=== PATIENT | male | born 2000 | race Caucasian/White ===

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

== ENCOUNTER 2022-09-17 22:59 | Emergency (ER) | payer OTHER ==
[2022-09-17 23:07] VITALS: BP 124/79; PULSE 110; RESP 18; TEMP 97.9
[2022-09-17] MEDS ORDERED: ACETAMINOPHEN TAB 325 MG TAB PO STA (23:23)
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
== END 2022-09-17 23:47 | disposition home or self-care (01) ==
LOC: EC 22:59
DX: F17.200 Nicotine dependence, unspecified, uncomplicated; Z88.8 Allergy status to other drugs, medicaments and biological substances
CPT/HCPCS: 99284

== ENCOUNTER 2023-10-13 10:39 | Inpatient (IN) | payer MEDICAID, OTHER ==
[2023-10-13 11:55] LABS: Amphetamine Screen,Urine Detected (NotDetected); Barbiturate Screen,Urine Not Detected (NotDetected); Benzodiazepines Screen,Urine Not Detected (NotDetected); Cocaine Screen,Urine Not Detected (NotDetected); Methadone Screen, Urine Not Detected (NotDetected); Opiate Screen,Urine Not Detected (NotDetected); Oxycodone Screen, Urine Not Detected (NotDetected); Phencyclidine Screen,Urine Not Detected (NotDetected); Tricyclic Antidepressant,Urine Not Detected (NotDetected); Urn Cannabinoid Scrn Detected (NotDetected)
--- NOTE | 2023-10-13 11:57 | ED ---
Psych HPI - General Source: patient, police, RN notes reviewed Mode of arrival: ambulatory Limitations: no limitations <Jaquan Acosta - Last Filed: 10/13/23 13:22> - General Source: patient, police, RN notes reviewed, old records reviewed Mode of arrival: ambulatory Limitations: no limitations - History of Present Illness MD Complaint: suicidal ideation, feels depressed Associated Psychiatric Symptoms: delusions Worsens With: drug use Context: significant life stressor Associated Symptoms: confusion <Kyler Han - Last Filed: 10/13/23 13:57> - General Chief Complaint: Psychiatric Symptoms Stated Complaint: mental health Time Seen by Provider: 10/13/23 10:39 - History of Present Illness Initial Comments: 23-year-old male presents emergency department with police for psychiatric evaluation. Patient reports methamphetamine use. Patient also has history of schizoaffective, schizophrenia not on current medications. Patient denies any other drug use denies current alcohol abuse no physical complaints. (Jaquan Acosta) 23 male for psychiatric illness, patient has history of psychosis schizophrenia not taking medication (Kyler Han) - Related Data Home Medications Medication Instructions Recorded Confirmed busPIRone HCL 15 mg PO BID 10/13/23 10/13/23 Allergies Allergy/AdvReac Type Severity Reaction Status Date / Time fluphenazine [From Prolixin] AdvReac Severe Swelling Verified 10/13/23 12:22 haloperidol [From Haldol] AdvReac Severe Unknown Verified 10/13/23 12:22 Review of Systems ROS Other: All systems not noted in ROS Statement are negative. <Jaquan Acosta - Last Filed: 10/13/23 13:22> ROS Other: All systems not noted in ROS Statement are negative. <Kyler Han - Last Filed: 10/13/23 13:57> ROS Statement: Those systems with pertinent positive or pertinent negative responses have been documented in the HPI. Past Medical History Past Medical History: No Reported History History of Any Multi-Drug Resistant Organisms: None Reported Past Surgical History: No Surgical Hx Reported Past Psychological History: Unable to Obtain Smoking Status: Current every day smoker Past Alcohol Use History: None Reported Past Drug Use History: Methamphetamine - Past Family History Mother Family Medical History: COPD <Jaquan Acosta - Last Filed: 10/13/23 13:22> General Exam Limitations: no limitations General appearance: alert, in no apparent distress, anxious Head exam: Present: atraumatic, normocephalic, normal inspection Respiratory exam: Present: normal lung sounds bilaterally. Absent: respiratory distress, wheezes, rales, rhonchi, stridor Cardiovascular Exam: Present: normal rhythm, tachycardia, normal heart sounds. Absent: systolic murmur, diastolic murmur, rubs, gallop, clicks Neurological exam: Present: alert, oriented X3, CN II-XII intact Psychiatric exam: Present: anxious <Jaquan Acosta M - Last Filed: 10/13/23 13:22> General appearance: alert, in no apparent distress Head exam: Present: atraumatic, normocephalic, normal inspection Eye exam: Present: normal appearance, PERRL, EOMI. Absent: scleral icterus, conjunctival injection, periorbital swelling ENT exam: Present: normal exam, mucous membranes moist Neck exam: Present: normal inspection. Absent: tenderness, meningismus, lymphadenopathy Respiratory exam: Present: normal lung sounds bilaterally. Absent: respiratory distress, wheezes, rales, rhonchi, stridor Cardiovascular Exam: Present: regular rate, normal rhythm, normal heart sounds. Absent: systolic murmur, diastolic murmur, rubs, gallop, clicks GI/Abdominal exam: Present: soft, normal bowel sounds. Absent: distended, tenderness, guarding, rebound, rigid Extremities exam: Present: normal inspection, full ROM, normal capillary refill. Absent: tenderness, pedal edema, joint swelling, calf tenderness Back exam: Present: normal inspection Neurological exam: Present: alert, oriented X3, CN II-XII intact Psychiatric exam: Present: normal affect, normal mood Skin exam: Present: warm, dry, intact, normal color. Absent: rash <Kyler Han - Last Filed: 10/13/23 13:57> Course <Kyler Han - Last Filed: 10/13/23 13:57> Vital Signs 10/13/23 10/13/23 10:40 13:43 Temperature 97.9 F Pulse Rate 119 H 86 Respiratory 18 20 Rate Blood Pressure 137/88 130/80 O2 Sat by Pulse 99 98 Oximetry - Reevaluation(s) Reevaluation #1: 10/13/23 11:57 Medical records reviewed (Kyler Hna) Reevaluation #2: 10/13/23 11:57 Cleared for psychiatric evaluation (Kyler Han) Medical Decision Making <Jaquan Acosta - Last Filed: 10/13/23 13:22> <Kyler Han - Last Filed: 10/13/23 13:57> - Medical Decision Making Was pt. sent in by a medical professional or institution (, WARNER, BLOOD BANK CUSTODIAN, urgent care, hospital, or longterm...) When possible be specific @ -No Did you speak to anyone other than the patient for history (EMS, parent, family, police, friend...)? What history was obtained from this source @ -Police who brought patient in regarding recent history and complaint Did you review nursing and triage notes (agree or disagree)? Why? @ -I reviewed and agree with nursing and triage notes Were old charts reviewed (outside hosp., previous admission, EMS record, old EKG, old radiological studies, urgent care reports/EKG's, longterm records)? Report findings @ -No old charts were reviewed Differential Diagnosis (chest pain, altered mental status, abdominal pain women, abdominal pain men, vaginal bleeding, weakness, fever, dyspnea, syncope, headache, dizziness, GI bleed, back pain, seizure, CVA, palpatations, mental health, musculoskeletal)? @ -Differential Mental Health Depression, anxiety, bipolar, psychosis, schizophrenia, borderline personality, situational depression, adjustment disorder, behavioral disorder, brain tumor, malingering, substance abuse, encephalopathy, medication reaction, dementia, hypothyroidism, degenerative neurologic disorder, lupus.... This is not meant to be all-inclusive list EKG interpreted by me (3pts min.). @None X-rays interpreted by me (1pt min.). @ -None done CT interpreted by me (1pt min.). @ -None done U/S interpreted by me (1pt. min.). @ -None done What testing was considered but not performed or refused? (CT, X-rays, U/S, labs)? Why? @ -None What meds were considered but not given or refused? Why? @ -None Did you discuss the management of the patient with other professionals (professionals i.e. , PA, BLOOD BANK CUSTODIAN, lab, RT, psych nurse, social sciences research scientist, rubber moulding machine operator, teacher, family preservation officer, hospice case manager)? Give summary @ -EPS evaluated patient discussed with psychiatry recommends inpatient treatment Was smoking cessation discussed for >3mins.? @ -No Was critical care preformed (if so, how long)? @ -No Were there social determinants of health that impacted care today? How? (Homelessness, low income, unemployed, alcoholism, drug addiction, transportation, low edu. Level, literacy, decrease access to med. care, halfway, rehab)? @ -No Was there de-escalation of care discussed even if they declined (Discuss DNR or withdrawal of care, Hospice)? DNR status @ -No What co-morbidities impacted this encounter? (DM, HTN, Smoking, COPD, CAD, Cancer, CVA, ARF, Chemo, Hep., AIDS, mental health diagnosis, sleep apnea, morbid obesity)? @ -Methamphetamine abuse, schizophrenia Was patient admitted / discharged? Hospital course, mention meds given and route, prescriptions, significant lab abnormalities, going to OR and other pertinent info. @Admitted to 3 W. Undiagnosed new problem with uncertain prognosis? @ -No Drug Therapy requiring intensive monitoring for toxicity (Heparin, Nitro, Insulin, Cardizem)? @ -No Were any procedures done? @ -No Diagnosis/symptom? @ -Methamphetamine abuse, schizophrenia Acute, or Chronic, or Acute on Chronic? @ -Acute Uncomplicated (without systemic symptoms) or Complicated (systemic symptoms)? @ -Complicated Side effects of treatment? @ -No Exacerbation, Progression, or Severe Exacerbation? @ -No Poses a threat to life or bodily function? How? (Chest pain, [place], [place], pneumonia, PE, COPD, DKA, ARF, appy, cholecystitis, CVA, Diverticulitis, Homicidal, Suicidal, threat to staff... and all critical care pts) @ -No (Jaquan Acosta) 23 male is seen and evaluated by psychiatry, patient will need inpatient psychiatric evaluation and treatment (Kyler Han) - Lab Data Lab Results 10/13/23 Range/Units 11:10 Urine Opiates Screen Not Detected (NotDetected) Ur Oxycodone Screen Not Detected (NotDetected) Urine Methadone Screen Not Detected (NotDetected) Ur Barbiturates Screen Not Detected (NotDetected) U Tricyclic Antidepress Not Detected (NotDetected) Ur Phencyclidine Scrn Not Detected (NotDetected) Ur Amphetamines Screen Detected H (NotDetected) U Methamphetamines Scrn Detected H (NotDetected) U Benzodiazepines Scrn Not Detected (NotDetected) Urine Cocaine Screen Not Detected (NotDetected) U Marijuana (THC) Screen Detected H (NotDetected) Disposition Time of Disposition: 13:23 <Jaquan Acosta M - Last Filed: 10/13/23 13:22> Is patient prescribed a controlled substance at d/c from ED?: No <Kyler Han - Last Filed: 10/13/23 13:57> Clinical Impression: Methamphetamine abuse, Acute psychosis, Schizoaffective disorder Disposition: TRANSFER TO PSYCH HOSP/UNIT Condition: Fair Referrals: None,Stated [Primary Care Provider] - 1-2 days
[2023-10-13] MEDS ORDERED: MAGNESIUM HYDROXIDE 2,400 MG/30 ML CUP PO PRN (17:22)
[2023-10-13] MEDS ORDERED: ACETAMINOPHEN TAB 325 MG TAB PO PRN (17:22)
[2023-10-13] MEDS ORDERED: MAG HYDROX/AL HYDROX/SIMETH 355 ML BOTTLE PO PRN (17:22)
[2023-10-13] MEDS ORDERED: IBUPROFEN 600 MG TAB PO PRN (17:22)
[2023-10-13] MEDS: OLANZapine 10 MG VIAL IM PRN (18:41)
[2023-10-13] MEDS ORDERED: WATER FOR INJECTION, STERILE 10 ML IV ONE (18:41)
[2023-10-13] MEDS: LORazepam 2 MG/ML INJ IM PRN (18:41)
[2023-10-13] MEDS: NICOTINE 14MG/24HR PATCH TRANSDERM SCH (18:52)
[2023-10-13 22:41] VITALS: BP 164/84; PULSE 116; RESP 18; TEMP 97.5
--- NOTE | 2023-10-13 23:26 | P.PN ---
Progress Note - Text Progress Note Date: 10/13/23 notified of new consult , patient medicated with IM meds and sleeping at this time
[2023-10-14] MEDS: LORazepam 1 MG TAB PO PRN (08:39)
[2023-10-14] MEDS ORDERED: NICOTINE 14MG/24HR PATCH TRANSDERM SCH (09:00)
--- NOTE | 2023-10-14 12:29 | P.HP ---
Psychiatric H&P - . H&P Date: 10/14/23 History & Physical: IDENTIFYING DATA: Patient is a 23-year-old male HPI: Nnamdi Melchor is a 23-year-old male with a history of schizoaffective disorder, bipolar type, stimulant use disorder, methamphetamine type, cannabis use disorder, reportedly in remission, and unspecified intellectual disability who presented to the emergency department with police on the evening of 10/13/2023. According to staff, Mr. Melchor had been brought in by police as he was pacing the sidewalk in his neighborhood with a shovel in hand and neighbors became concerned for his behavior and their safety. After arrival to the [facility], Mr. Melchor received IM PRNs due to acute agitation and anxiety. This morning, he was seen at the bedside and woke easily when his name was called. When asked about the events that preceded his admission Mr. Melchor shared that he heard police sirens saying "I am going to kill you". He does endorse having had recent meth use prior to this occurring though felt the quantity of meth that he used was not sufficient to cause hallucinations which he has experienced after meth use in the past. He stated "I am good now" he feels that his mood is "all right," and he denied feeling depressed or persistently sad. He does endorse having experienced several losses and resulting grief which do contribute to his use of meth. He notes having had good sleep since being in the hospital and eating well, though his energy is low which tends to occur after he has used meth. In regards to other symptoms, Mr. Melchor endorses feeling anxious he is particularly worried about dying at a young age, something that has happened to people he loves. He denies other worries or ruminations. He denies experiencing nightmares or flashbacks. He also denies having auditory or visual hallucinations. He was unable to provide other details about his behavior or actions leading up to admission though he does deny using any other substances when asked specifically about cocaine heroine LSD PCP or prescription drugs that are not prescribed to him. He also denies suicidal ideation and denies experiencing homicidal ideation. In an effort to understand his perspective about this admission and the circumstances that brought him here I inquired about his history of psychiatric diagnoses. He reports having been diagnosed with skin schizophrenia, ADHD, and anxiety in the past though he does not think these diagnoses applied to him and he shared "my brain is fine". He is not presently interested in taking any medication to help with mood or other symptoms as he does not feel it is needed he is not open to new medications that he has not tried before nor is he open to taking things that he has been on previously. He shared that "I deserve a few more chances before taking those meds". In exploring this a bit more he holds the perspective that his medications are only needed when he has had issues managing his behavior or if he has had several significant events occur secondary to his behavior. However he reiterated "I have been good since I have been here" several times as justification that he does not need psychiatric treatment. He also inquired about when he would be leaving the hospital as he feels he is well and the rest he got last night was all that was needed. PAST PSYCHIATRIC HISTORY: Patient has a history of schizoaffective disorder stimulant use disorder cannabis use disorder and nicotine dependence. He has had multiple prior hospitalizations for psychiatric care and stabilization he has not been seen at our hospital since July 2021. Upon review of [facility] records he has pretty most recently been treated with Abilify 10 mg once daily though this was discontinued as of his visit on 10/06/2023. He has also been treated with buspirone 15 mg twice a day and had a extended course of Invega Sustenna 156 mg IM every 4 weeks. He was treated with that medication during his most recent period of incarceration and has not resumed. Additionally he was previously on clonidine 0.2 mg at bedtime and Vyvanse 40 mg once daily back in May 2022. However this medication was discontinued as his UDS was positive for kratom and THC. He was also treated previously back in 2021 with benztropine 2 mg twice daily and trazodone 150 mg at night he is also been treated with hydroxyzine 50 mg 3 times a day as needed though these medications or all discontinued at various points due to patient refusal. Mr. Melchor denies any history of suicide attempts. He has been seen at the [facility] as of 10/06/23 which was the date of his last visit. PMH: He denies having any chronic medical problems CHEMICAL DEPENDENCY HISTORY: Frequent meth use; denies any present use of other substances though previously documented use of THC. Denies regular consumption of alcohol. FAMILY PSYCHIATRIC/SUBSTANCE USE HISTORY: Family history of substance use disorders SOCIAL HISTORY: Patient was born and raised in [place]. He presently resides with his mom and shares a home with several other people as well. He ended his educational journey around the eighth or ninth grade. He has not had sustained employment. He is not currently in a relationship and does not have any children. He has previously been incarcerated most recently for about a year and was released around July or August of this year. Review of records that incarceration was secondary to stealing a car. Allergies Allergy/AdvReac Type Severity Reaction Status Date / Time fluphenazine from Prolixin AdvReac Severe Swelling Verified 10/13/23 12:22 haloperidol from Haldol AdvReac Severe Unknown Verified 10/13/23 12:22 Vital Signs Temp 97.5 F L 10/13/23 18:00 Pulse 116 H 10/13/23 18:00 Resp 18 10/13/23 18:00 BP he denies any present legal issues. 164/84 10/13/23 18:00 Pulse Ox 97 10/13/23 18:00 FiO2 Intake & Output 10/13/23 10/14/23 10/14/23 18:59 06:59 18:59 Weight 68.039 kg Laboratory Last Values Urine Opiates Screen Not Detected (NotDetected) 10/13/23 11:10 Ur Oxycodone Screen Not Detected (NotDetected) 10/13/23 11:10 Urine Methadone Screen Not Detected (NotDetected) 10/13/23 11:10 Ur Barbiturates Screen Not Detected (NotDetected) 10/13/23 11:10 U Tricyclic Antidepress Not Detected (NotDetected) 10/13/23 11:10 Ur Phencyclidine Scrn Not Detected (NotDetected) 10/13/23 11:10 Ur Amphetamines Screen Detected (NotDetected) H 10/13/23 11:10 U Methamphetamines Scrn Detected (NotDetected) H 10/13/23 11:10 U Benzodiazepines Scrn Not Detected (NotDetected) 10/13/23 11:10 Urine Cocaine Screen Not Detected (NotDetected) 10/13/23 11:10 U Marijuana (THC) Screen Detected (NotDetected) H 10/13/23 11:10 SARS-CoV-2 (PCR) Not Detected (Not Detectd) 10/13/23 13:46 MENTAL STATUS EXAM: General Appearance: Patient appears to be stated age is drowsy but attempts to cooperate]. Patient appears to have poor hygiene and grooming. Behavior: Patient is lying down without any agitated behavior. Speech: Patient's speech is fluent and nonpressured. Variable quality of articulation. Mood/Affect: Patient reports their mood is "alright", affect is congruent and constricted. Slightly labile and intermittently animated with eyes opening wide briefly then returning to near-slumber. Patient fell asleep once during interview. Suicidality/Homicidality: Patient denies having any homicidal ideation intent or plan. Denies any suicidal ideations intent or plan Perceptions: Patient denies any visual hallucinations and denies any auditory hallucinations at present Though content/process: [There is no overt evidence of any delusional thought content though concern for this. Paucity of thought. Some thought disorganization. Memory and concentration: alert and oriented to person and place; patient's timeline of events is inconsistent and not fully reliable. Judgment and insight: Poor STRENGTHS/WEAKNESSES: strength is that patient is resilient. Weakness is that patient has poor judgment and does not have insight about his mental health INTELLECT: History of intellectual disability per review of [facility] records IMPRESSIONS: Nnamdi Melchor is a 23-year-old male with a history of schizoaffective disorder bipolar type and stimulant use disorder with frequent use of methamphetamine who presented after having used methamphetamine and was found engaging in disorganized behavior which prompted neighbors to call police. After arrival to the unit last evening he became agitated and very anxious and required as needed medication to help him calm. Based on evaluation this morning he lacks insight about both his diagnoses and the need for treatment and does not see the content contributory impact of his methamphetamine use on his overall wellbeing. While he had signed into the unit for treatment voluntarily a petition had previously been filed and a second certificate will be completed due to the overt lack of insight and persistently poor judgment which contributed to grave disability and inability to maintain his safety. During our conversation this morning he remains adamant that medication is not needed to help his mood or to help him maintain stability. Various treatment options were offered and discussed and he declined them all. - Schizoaffective disorder, bipolar type - Stimulant use disorder, severe, amphetamine type PLAN: -Patient is admitted under voluntary status to [facility]HU for stabilization of psychiatric symptoms and safety. However, a second certification will be completed and along with petition will be filed for court due to patient's grave disability and severe lack of insight and poor judgment which may endanger himself or others. -Medications : - Patient has declined medication and is not at all open to consideration for treatment -Ativan and Haldol PRN for agitation/aggression - Patient does not have insight about the problematic nature of meth use but will continue to engage with him regarding this -Internal Medicine consult to perform medical evaluation and physical. -NRT -nicotine patch not needed as patient does not smoke -SW on board for discharge planning. Encourage patient to participate in groups to work on coping skills. Will await court date. 10/14/23 07:56 10/14/23 12:02 10/14/23 12:08 10/14/23 12:16 10/14/23 12:19 10/14/23 12:22
[2023-10-14] MEDS: OLANZapine 5 MG TAB PO PRN (20:27)
[2023-10-15] MEDS: ARIPiprazole 10 MG TAB PO SCH (11:28)
--- NOTE | 2023-10-15 12:37 | P.PN ---
Progress Note - Text Progress Note Date: 10/15/23 Interval History: Overnight per nursing notes patient became agitated after he removed a 2L soda bottle from the group room and attempted to take it back to his room. He ultimately did take a PRN that helped him feel more calm, and he slept most of the evening. Attempted to see him this morning but he was sleeping soundly and did not wake when his name was called several times. Patient subsequently became frustrated later as he had not yet been seen and required another oral PRN to help decrease his agitation. While in the office he could be heard in the rodriguez shouting about discharge and intermittently hitting the grossman. He attended group and was amenable to meeting briefly as we walked laps in the hallway. He described having "special varner to make people do things and they don't even realize it." He feels he can control the behavior of others without their knowledge. He went on to share that he can do "oriental orthodox" and described this as one of his abilities. He endorsed plans to sign the deferral paperwork and agree to treatment. He shared that he has been "good" today and "trying to focus on myself." He reports eating well and sleeping well. He plans to attend to his hygiene after his clothing is returned. At this time patient denies any suicidal or homicidal ideations, intent or plan. Patient denies any auditory and visual hallucinations. Patient denies any side effects from the PRN medications and has been non-adherent with scheduled medication. MENTAL STATUS EXAM: General Appearance: Patient appears to be stated age is awake and alert. Patient appears to have poor hygiene and grooming. Behavior: Patient is walking the halls and has mild to moderate psychomotor agitation. He smiled and giggled out of context twice during the encounter. He subsequently folded his arms and began getting a bit more agitated as the conversation progressed. Speech: Patient's speech is fluent and slightly faster rate than normal. Conversational tone, then later more abrupt and annoyed. Mood/Affect: Patient reports their mood is "fine", affect is congruent and constricted. Continues to be somewhat labile; seeming content then getting increasingly agitated. Suicidality/Homicidality: Patient denies having any homicidal ideation intent or plan. Denies any suicidal ideations intent or plan Perceptions: Patient denies any visual hallucinations and denies any auditory hallucinations at present. Though content/process: There is concern for delusional thought content. Endors es special abilities to control the behavior of others without their knowledge. Memory and concentration: alert and oriented to person and place; patient's timeline of events is inconsistent and not fully reliable. Judgment and insight: Poor ASSESSMENT: Nnamdi Melchor is a 23-year-old male with a history of schizoaffective disorder bipolar type and stimulant use disorder with frequent use of methamphetamine who presented after having used methamphetamine and was found engaging in disorganized behavior which prompted neighbors to call police. He has continued to have intermittent periods of agitation. He lacks insight about the need for hospitalization or the use of medication to treat his symptoms. He shared delusional thought content during today's exam and was intermittently labile. He is scheduled for a deferral conference tomorrow and shared plans to "sign the paper and agree to take my meds." - Schizoaffective disorder, bipolar type - Stimulant use disorder, severe, amphetamine type PLAN: -Patient is admitted under involuntary status to [facility]HU for stabilization of psychiatric symptoms and safety. -Medications : - Abilify 10 mg daily ordered; refused so far today - Ativan and Olanzapine PRN for agitation/aggression - Patient does not have insight about the problematic nature of meth use but will continue to engage with him regarding this -Internal Medicine consult to perform medical evaluation and physical. -NRT -nicotine patch not needed as patient does not smoke -SW on board for discharge planning. Encourage patient to participate in groups to work on coping skills. Court hearing scheduled for 10/21/23.
--- NOTE | 2023-10-15 23:05 | P.PN ---
Progress Note - Text Progress Note Date: 10/15/23 patient refused evaluation at this time , patient was sleeping early and medicated
--- NOTE | 2023-10-16 13:17 | P.PN ---
Progress Note - Text Progress Note Date: 10/16/23 Interval History: Patient was seen in his room, and agreeable to speak to the repairer typewriter at the [facility]. Patient states that he is ok today, and very focused on discharge. Power Marketer explained the many pieces of the puzzle that needs to be completed prior to discharge. Patient still adamant on discharge. Power Marketer called patients mother, patients mother stated patient has behavioral issues at home, and is in agreeance that patient would benefit from receiving a HARDIN. Will have to coordinate discharge with the patients guardian. Patient became increasingly agitated during the interview. At this time patient denies any suicidal or homicidal ideations, intent or plan. Patient denies any auditory and visual hallucinations. Patient denies any side effects from the PRN medications and has been non-adherent with scheduled medication. MENTAL STATUS EXAM: General Appearance: Patient appears to be stated age is awake and alert. Patient appears to have poor hygiene and grooming. discheveled hair. Behavior: Patient is walking the halls and is yelling about punching security in the mouth. Speech: Patient's speech is fluent and slightly faster rate than normal. Conversational tone, then later more abrupt and annoyed. Mood/Affect: Patient reports their mood is "fine", affect is congruent and constricted. Continues to be somewhat labile; seeming content then getting increasingly agitated. Suicidality/Homicidality: Patient denies having any homicidal ideation intent or plan. Denies any suicidal ideations intent or plan Perceptions: Patient denies any visual hallucinations and denies any auditory hallucinations at present. Though content/process: There is concern for delusional thought content. Memory and concentration: alert and oriented x3 Judgment and insight: Poor ASSESSMENT: Schizoaffective disorder, bipolar type Stimulant use disorder, severe, amphetamine type PLAN: -Patient is admitted under involuntary status to MHU for stabilization of psychiatric symptoms and safety. -Medications : - Abilify 10 mg daily ordered will increase to 15 mg tomorrow - Abilify 400mg IM today 10/15, for mood stabilization - trazodone 100mg qhs for sleep - Ativan and Olanzapine PRN for agitation/aggression -NRT -nicotine patch not needed as patient does not smoke -SW on board for discharge planning. Encourage patient to participate in groups to work on coping skills. Patient did sign a deferral with is deputy county attorney. Power Marketer spoke with patient's mom over the phone and due to patient's poor insight and judgment and lack of compliance with medications, will transition onto long- acting injection and likely discharge early next week if patient is improving.
[2023-10-16] MEDS: ARIPiprazole IM SYRINGE 400 MG (NO CHARGE) PHARMACY STOCK IM SCH (13:37)
[2023-10-16] MEDS: NICOTINE GUM (POLACRILEX) 2 MG GUM BUCCAL PRN (14:34)
[2023-10-16] MEDS ORDERED: LORazepam 2 MG/ML INJ IM PRN (14:53)
[2023-10-16] MEDS ORDERED: PROPRANOLOL 40 MG TAB PO PRN (14:58)
[2023-10-16] MEDS: chlorproMAZINE 25 MG TAB PO ONE (15:00)
[2023-10-16] MEDS: OLANZapine 10 MG TAB PO ONE (15:00)
[2023-10-16] MEDS: traZODone HCL 100 MG TAB PO SCH (20:37)
[2023-10-16] MEDS: BACITRACIN OINT 1 EACH PACKET TOPICAL SCH (20:37)
--- NOTE | 2023-10-16 21:26 | P.MDCNMH ---
<Woo Box - Last Filed: 10/16/23 22:03> History of Present Illness H&P Date: 10/16/23 Chief Complaint: Medical evaluation Patient is a 23-year-old male with history of psychiatric disorder is seen for medical evaluation. Patient reports no concerns from medical standpoint. Patient denies headaches, blurry vision, nausea, vomiting, fever, chills, shortness of breath, chest pain, abdominal pain, diarrhea, constipation, urinary issues, pain and swelling in upper and lower extremities. Patient denies history of seizures. Patient denies any history of CAD or CVA. Vitals: Tmax 97.9 degrees Fahrenheit, pulse rate 86, respiratory rate 18, blood pressure 140/88, oxygen saturation 97% room air Review of systems: Pertinent positives and negatives as discussed in HPI, a complete review of systems was performed and all other systems are negative. Social history: Tobacco: No cigarette smoking Alcohol: Denies regular alcohol use Recreational drugs: Marijuana and methamphetamine use Travel: None Occupation: None Family History: Noncontributory Physical examination: Vital signs reviewed General: non toxic, no distress, appears at stated age, normal weight Derm: no unusual rashes/lesions, warm Head: atraumatic, normocephalic, symmetric Eyes: EOMI, no lid lag, anicteric sclera, pupils equal round reactive to light ENT: Nose and ears atraumatic Neck: No cervical lymphadenopathy, trachea midline, supple Mouth: no lip lesion, mucus membranes moist Cardiovascular: S1S2 reg, no murmur, positive dorsalis pedis pulse bilateral, no edema Lungs: CTA bilateral, no rhonchi, no rales, no accessory muscle use Abdominal: soft, nontender to palpation, no guarding Ext: muscle strength 5 out of 5 in all 4 extremities grossly, no gross muscle atrophy, no contractures, Neuro: CN II-XI grossly intact, no gross focal neuro deficits Psych: Alert, oriented, appropriate affect Assessment/Plan: 23-year-old male with a history of psychiatric disorder is seen for medical evaluation. Patient reports no concerns from medical standpoint. -Hypertension, uncontrolled - likely due to withdrawal effect His BP readings on 10/13/2023 are 137/88, 130/80, 140/88 and 164/84 No new BP reading are available Continue monitoring blood pressure Start captopril 25 mg p.o. twice daily if SBP >180 and DBP >120 Continue with psychiatric disorder management as per psychiatrist. Past Medical History Past Medical History: No Reported History History of Any Multi-Drug Resistant Organisms: None Reported Past Surgical History: No Surgical Hx Reported Past Psychological History: Unable to Obtain Smoking Status: Current every day smoker Past Alcohol Use History: None Reported Past Drug Use History: Methamphetamine - Past Family History Mother Family Medical History: COPD Medications and Allergies Home Medications Medication Instructions Recorded Confirmed Type busPIRone HCL 15 mg PO BID 10/13/23 10/13/23 History Allergies Allergy/AdvReac Type Severity Reaction Status Date / Time fluphenazine [From Prolixin] AdvReac Severe Swelling Verified 10/13/23 12:22 haloperidol [From Haldol] AdvReac Severe Unknown Verified 10/13/23 12:22 <Margy Portillo - Last Filed: 10/16/23 22:37> History of Present Illness I have seen and evaluated the patient today. I Discussed the case with the resident and agree with the resident's findings as documented in the resident's note. 23 year old male with polysubstance abuse , schizophrenia , non compliant with his meds acute psychosis , management per psych elevated BP single reading no history of hypertension continue to monitor off medications if persistently elevated , then will consider starting BP meds no labs available polysubstance abuse urine drug screen positive for meth , benzo and marijuana counseled to abstain from drug of abuse stable from medical stand point thanks for this consultation
[2023-10-17] MEDS: ARIPiprazole 15 MG TAB PO SCH (09:22)
--- NOTE | 2023-10-17 10:48 | P.PN ---
Subjective Progress Note Date: 10/17/23 Patient Name: Nnamdi Melchor Date of : [birth year] Patient Status: Inpatient Attending Provider: Babar Sinclair Date: 10/17/23 Initialization Date: 10/16/23 08:44 Subjective data: Patient was seen in his room, and agreeable to speak to the report writer Patient was not very cooperative Patient stated that he is leaving Thursday and that the does not feel like talking at this time Patient states that he is ok today, and very focused on discharge. Reviewing the chart reveals the following information and similar interaction with Dr. Butts Following is an abstract from his conversation the previous day Previously the patient was yelling and walking around threatening to hurt people ''Offal Roller explained the many pieces of the puzzle that needs to be completed prior to discharge. Patient still adamant on discharge. Offal Roller called patients mother, patients mother stated patient has behavioral issues at home, and is in agreeance that patient would benefit from receiving a HARDIN. Will have to coordinate discharge with the patients guardian. Patient became increasingly agitated during the interview. At this time patient denies any suicidal or homicidal ideations, intent or plan. Patient denies any auditory and visual hallucinations. Patient denies any side effects from the PRN medications and has been non- adherent with scheduled medication.'' MENTAL STATUS EXAM: General Appearance: Patient appears to be stated age is awake and alert. Patient appears to have poor hygiene and grooming. discheveled hair. Behavior: Patient was laying in bed and is unmotivated Speech: Patient's speech is fluent and slightly faster rate than normal. Conversational tone, then later more abrupt and annoyed. Mood/Affect: Blunted, affect is congruent and constricted. Continues to be irritable; then getting increasingly agitated. Suicidality/Homicidality: Patient denies having any homicidal ideation intent or plan. Denies any suicidal ideations intent or plan Perceptions: Patient denies any visual hallucinations and denies any auditory hallucinations at present. Though content/process: There is concern for delusional thought content. Memory and concentration: alert and oriented x3 Judgment and insight: Poor ASSESSMENT: Schizoaffective disorder, bipolar type Stimulant use disorder, severe, amphetamine type PLAN: Agree with the current treatment plan -Patient is admitted under involuntary status to [facility]HU for stabilization of psychiatric symptoms and safety. -Medications : - Abilify 10 mg daily ordered will increase to 15 mg tomorrow - Abilify 400mg IM today 10/15, for mood stabilization - trazodone 100mg qhs for sleep - Ativan and Olanzapine PRN for agitation/aggression -NRT -nicotine patch not needed as patient does not smoke -SW on board for discharge planning. Encourage patient to participate in groups to work on coping skills. Patient did sign a deferral with his material preparation worker. Plan is to transition onto long- acting injection and likely discharge early next week if patient is improving. Good Florentino MD Objective - Vital Signs Vital signs: Vital Signs Temp 97.5 F L 10/13/23 18:00 Pulse 116 H 10/13/23 18:00 Resp 18 10/13/23 18:00 BP 164/84 10/13/23 18:00 Pulse Ox 97 10/13/23 18:00 FiO2
[2023-10-17] MEDS: LORazepam 1 MG TAB PO PRN (12:31)
[2023-10-17] MEDS ORDERED: MELATONIN 5 MG TABLET PO PRN (20:56)
--- NOTE | 2023-10-18 09:08 | P.PN ---
Subjective Progress Note Date: 10/18/23 Patient Name: Nnamdi Melchor Date of : [birth year] Patient Status: Inpatient Attending Provider: Babar Sinclair Date: 10/18/23 Initialization Date: 10/16/23 08:44 Subjective data: The patient was seen in interaction was similar to the previous day Patient was seen in his room, and agreeable to speak to the show card writer Patient was not very cooperative Patient stated that he is leaving Thursday and that the does not feel like talking at this time Patient states that he is ok today, and very focused on discharge. Reviewing the chart reveals the following information and similar interaction with Dr. Butts Following is an abstract from his conversation Previously the patient was yelling and walking around threatening to hurt people ''Sink Cutter explained the many pieces of the puzzle that needs to be completed prior to discharge. Patient still adamant on discharge. Sink Cutter called patients mother, patients mother stated patient has behavioral issues at home, and is in agreeance that patient would benefit from receiving a HARDIN. Will have to coordinate discharge with the patients guardian. Patient became increasingly agitated during the interview. At this time patient denies any suicidal or homicidal ideations, intent or plan. Patient denies any auditory and visual hallucinations. Patient denies any side effects from the PRN medications and has been non- adherent with scheduled medication.'' MENTAL STATUS EXAM: General Appearance: Patient appears to be stated age is awake and alert. Patient appears to have poor hygiene and grooming. discheveled hair. Behavior: Patient was laying in bed and is unmotivated Speech: Patient's speech is fluent and slightly faster rate than normal. Conversational tone, then later more abrupt and annoyed. Mood/Affect: Blunted, affect is congruent and constricted. Continues to be irritable; then getting increasingly agitated. Suicidality/Homicidality: Patient denies having any homicidal ideation intent or plan. Denies any suicidal ideations intent or plan Perceptions: Patient denies any visual hallucinations and denies any auditory hallucinations at present. Though content/process: There is concern for delusional thought content. Memory and concentration: alert and oriented x3 Judgment and insight: Poor ASSESSMENT: Schizoaffective disorder, bipolar type Stimulant use disorder, severe, amphetamine type PLAN: Agree with the current treatment plan -Patient is admitted under involuntary status to [facility] for stabilization of psychiatric symptoms and safety. -Medications : - Abilify 10 mg daily ordered will increase to 15 mg tomorrow - Abilify 400mg IM today 10/15, for mood stabilization - trazodone 100mg qhs for sleep - Ativan and Olanzapine PRN for agitation/aggression -NRT -nicotine patch not needed as patient does not smoke -SW on board for discharge planning. Encourage patient to participate in groups to work on coping skills. Patient did sign a deferral with his mcat tutor. Plan is to transition onto long-acting injection and likely discharge early next week if patient is improving. Good Florentino MD Objective - Vital Signs Vital signs: Vital Signs Temp 97.5 F L 10/13/23 18:00 Pulse 116 H 10/13/23 18:00 Resp 18 10/13/23 18:00 BP 164/84 10/13/23 18:00 Pulse Ox 97 10/13/23 18:00 FiO2
--- NOTE | 2023-10-19 11:55 | P.DS ---
Providers Date of admission: 10/13/23 16:57 Expected date of discharge: 10/19/23 Attending physician: Babar Sinclair MD Consults: 10/13/23 17:22 Consult Physician Routine Consulting Provider: [facility] Consult Reason/Comments: H&P and medical Do you want consulting provider notified?: Yes Primary care physician: Stated None - Discharge Diagnosis(es) (1) Schizoaffective disorder, bipolar type Current Visit: Yes Status: Acute Priority: High (2) Stimulant use disorder Current Visit: Yes Status: Acute Priority: Medium (3) Nicotine dependence Current Visit: Yes Status: Acute Priority: Low (4) Cannabis use disorder Current Visit: Yes Status: Acute Priority: Medium Hospital Course: Admission HPI: Admission note was completed by Dr Stanley "Nnamdi Melchor is a 23-year-old male with a history of schizoaffective disorder, bipolar type, stimulant use disorder, methamphetamine type, cannabis use disorder, reportedly in remission, and unspecified intellectual disability who presented to the emergency department with police on the evening of 10/13/2023. According to staff, Mr. Melchor had been brought in by police as he was pacing the sidewalk in his neighborhood with a shovel in hand and neighbors became concerned for his behavior and their safety. After arrival to the [facility], Mr. Melchor received IM PRNs due to acute agitation and anxiety.This morning, he was seen at the bedside and woke easily when his name was called. When asked about the events that preceded his admission Mr. Melchor shared that he heard police sirens saying "I am going to kill you". He does endorse having had recent meth use prior to this occurring though felt the quantity of meth that he used was not sufficient to cause hallucinations which he has experienced after meth use in the past. He stated "I am good now" he feels that his mood is "all right," and he denied feeling depressed or persistently sad. He does endorse having experienced several losses and resulting grief which do contribute to his use of meth. He notes having had good sleep since being in the hospital and eating well, though his energy is low which tends to occur after he has used meth. In regards to other symptoms, Mr. Melchor endorses feeling anxious he is particularly worried about dying at a young age, something that has happened to people he loves. He denies other worries or ruminations. He denies experiencing nightmares or flashbacks. He also denies having auditory or visual hallucinations. He was unable to provide other details about his behavior or actions leading up to admission though he does deny using any other substances when asked specifically about cocaine heroine LSD PCP or prescription drugs that are not prescribed to him. He also denies suicidal ideation and denies experiencing homicidal ideation.In an effort to understand his perspective about this admission and the circumstances that brought him here I inquired about his history of psychiatric diagnoses. He reports having been diagnosed with skin schizophrenia, ADHD, and anxiety in the past though he does not think these diagnoses applied to him and he shared "my brain is fine". He is not presently interested in taking any medication to help with mood or other symptoms as he does not feel it is needed he is not open to new medications that he has not tried before nor is he open to taking things that he has been on previously. He shared that "I deserve a few more chances before taking those meds". In exploring this a bit more he holds the perspective that his medications are only needed when he has had issues managing his behavior or if he has had several significant events occur secondary to his behavior. However he reiterated "I have been good since I have been here" several times as justification that he does not need psychiatric treatment. He also inquired about when he would be leaving the hospital as he feels he is well and the rest he got last night was all that was needed." Hospital course: Upon admission to the unit patient was directable and agreeable to commence treatment and signed adult voluntary form. Patient got along well with other patients on the unit and followed unit protocol. Patient was compliant with the medications and denied any side effects throughout hospital course. Patient was started on Abilify increased to dose of 15 mg daily for mood stabilization, he was given a Abilify Maintena 400 mg IM dose on 10/15, next dose will be due on 11/12 q. monthly. Trazodone 150 mg nightly for sleep/mood. Zyprexa as needed for agitation/anxiety. Patient spoke of his stressors and engaged in therapy both group and individual. Patient was also seen by medical team for history and physical exam. Throughout the course of the hospitalization patient gradually improved with regards to mood, anxiety, lability, impulsivity, Sleep and returned back to their baseline level of functioning. On the day of discharge patient denied any suicidal or homicidal ideations intent or plan denied any auditory or visual hallucinations. Patient endorsed wanting to live for his health and family. The patient denied any access to guns or weapons. Patient denied any paranoia and did not endorse any delusions. Patient does have a significant history of substance abuse and was counseled on abstaining from all substances including alcohol and marijuana. Patient was offered however declined inpatient substance-abuse rehab. Patient elected to do outpatient substance use treatment program through [facility]. Patient was also counseled on the medications and need for regular compliance and was encouraged to follow-up with their outpatient appointment for mental health and also for primary care. Prior to discharge a family meeting will be arranged by social worker aide to answer any qu estions and ensure safety upon discharge. Mental status exam: General Appearance: Patient appears to be stated age is alert, pleasant, and cooperative. Patient is in no acute distress and has improved hygiene and grooming Behavior: Patient is calmly seated without any agitated behavior. attempts to cooperate. childlike at times. Speech: Patient's speech is fluent and nonpressured. Mood/Affect: Patient reports their mood is "Im good", affect is congruent and euthymic. Suicidality/Homicidality: Patient denies having any suicidal or homicidal ideation intent or plan. Perceptions: Patient denies any auditory or visual hallucinations. Though content/process: There is no evidence of any delusional thought content and thought process is linear and goal-directed. Memory and concentration: AOX3, grossly intact for the purposes of this session. Can spell "WORLD" backwards correctly. Judgment and insight: chronically poor/limited, however has improved with guarded prognosis Impression: Schizoaffective disorder, bipolar type Stimulant use disorder, severe, amphetamine type cannabis use disorder Nicotine dependence Plan: -Continue with discharge today as patient has improved and stabilized psychiatrically and is not currently an imminent threat to himself and/or others. Patient will remain at chronically elevated risk for harm to self and/or others due to his impulsivity and substance abuse. -Continue medications: Abilify p.o. 50 mg daily for mood stabilization/psychosis. Patient was given Abilify Maintena 400 mg IM on 10/15, next dose will be due on 11/12 q. monthly. Trazodone 150 mg nightly for sleep/mood. patient will also have zyprexa po prn for agitation/anxiety -Patient was counseled on the need for medication compliance and appropriate follow-up at mental health and also primary care for medical issues. Patient verbalized understanding and agreed. -Social work to arrange for and conduct family meeting to ensure safety upon discharge and answer any questions/concerns. Social work also to arrange for patients follow up appointments with [facility] for psychiatric care along with follow up with primary care provider. -Patient counseled on abstaining from recreational drugs and marijuana and alcohol. Was informed/educated on the adverse effects on their physical and mental health. Patient verbally agreed and understood. Patient was offered substance abuse treatment however declined at this time. -Patient was instructed to return to the hospital or seek immediate medical care if their psychiatric or medical symptoms do worsen or reoccur. Allergies Allergy/AdvReac Type Severity Reaction Status Date / Time fluphenazine from Prolixin AdvReac Severe Swelling Verified 10/13/23 12:22 haloperidol from Haldol AdvReac Severe Unknown Verified 10/13/23 12:22 Laboratory Results Urine Opiates Screen Not Detected (NotDetected) 10/13/23 11:10 Ur Oxycodone Screen Not Detected (NotDetected) 10/13/23 11:10 Urine Methadone Screen Not Detected (NotDetected) 10/13/23 11:10 Ur Barbiturates Screen Not Detected (NotDetected) 10/13/23 11:10 U Tricyclic Antidepress Not Detected (NotDetected) 10/13/23 11:10 Ur Phencyclidine Scrn Not Detected (NotDetected) 10/13/23 11:10 Ur Amphetamines Screen Detected (NotDetected) H 10/13/23 11:10 U Methamphetamines Scrn Detected (NotDetected) H 10/13/23 11:10 U Benzodiazepines Scrn Not Detected (NotDetected) 10/13/23 11:10 Urine Cocaine Screen Not Detected (NotDetected) 10/13/23 11:10 U Marijuana (THC) Screen Detected (NotDetected) H 10/13/23 11:10 SARS-CoV-2 (PCR) Not Detected (Not Detectd) 10/13/23 13:46 Vital Signs Temp 97.5 F L 10/13/23 18:00 Pulse 116 H 10/13/23 18:00 Resp 18 10/13/23 18:00 BP 164/84 10/13/23 18:00 Pulse Ox 97 10/13/23 18:00 FiO2 Intake & Output 10/18/23 10/19/23 10/19/23 18:59 06:59 18:59 Weight 83.5 kg Patient Condition at Discharge: Stable Plan - Discharge Summary New Discharge Prescriptions: New ARIPiprazole IM SYRINGE [Abilify Maintena Syringe] 400 mg IM QMONTHLY #1 each Nicotine 14Mg/24Hr Patch [Habitrol] 1 patch TRANSDERM DAILY 14 Days #14 patch Nicotine Gum (Polacrilex) [Nicorette] 2 mg BUCCAL Q4HR PRN pieceofgum PRN Reason: Nicotine Cravings traZODone HCL 150 mg PO HS 30 Days #30 tablet OLANZapine [ZyPREXA] 7.5 mg PO DAILY PRN 30 Days #30 tab PRN Reason: Agitation Or Acute Anxiety ARIPiprazole [Abilify] 15 mg PO DAILY 11 Days #11 tab Discontinued busPIRone HCL 15 mg PO BID Discharge Medication List ARIPiprazole IM SYRINGE [Abilify Maintena Syringe] 400 mg IM QMONTHLY #1 each 10/19/23 [Rx] ARIPiprazole [Abilify] 15 mg PO DAILY 11 Days #11 tab 10/19/23 [Rx] Nicotine 14Mg/24Hr Patch [Habitrol] 1 patch TRANSDERM DAILY 14 Days #14 patch 10/19/23 [Rx] Nicotine Gum (Polacrilex) [Nicorette] 2 mg BUCCAL Q4HR PRN pieceofgum 10/19/23 [Rx] OLANZapine [ZyPREXA] 7.5 mg PO DAILY PRN 30 Days #30 tab 10/19/23 [Rx] traZODone HCL 150 mg PO HS 30 Days #30 tablet 10/19/23 [Rx] Follow up Appointment(s)/Referral(s): [facility] [Outside] - 10/22/23 2:30 pm (10/22/2023 2:30PM - 3:30PM GIOVANI JACKSON 11/03/2023 3:30PM - 4:00PM RUPERTO ULLOA ) [facility] [NON-STAFF] - 1 Week Patient Instructions/Handouts: How to Stop Smoking (DC), Schizophrenia (DC) Activity/Diet/Wound Care/Special Instructions: Avoid the use of street drugs and alcohol. Take all medications as prescribed. When you are in need of refills on your medications, please contact your medical provider and/or outpatient psychiatrist/provider to have this done. Please go to your scheduled outpatient appointment for aftercare treatment. If symptoms return or become worse, call the crisis line at and/or go to the nearest emergency room for evaluation. National Suicide Hotline 988 Discharge Disposition: HOME SELF-CARE
== END 2023-10-19 13:02 | disposition home or self-care (01) | DRG 750 ==
LOC: EC 10:39 → EEVIPCON 10:39 → 3MHU 16:57
PROVIDERS: ADMIT Psychiatry & Neurology Psychiatry; ATTEND Psychiatry & Neurology Psychiatry
DX: F25.0 Schizoaffective disorder, bipolar type (principal); F79 Unspecified intellectual disabilities; R45.851 Suicidal ideations; F15.20 Other stimulant dependence, uncomplicated; F12.10 Cannabis abuse, uncomplicated; I10 Essential (primary) hypertension; Z91.148 Patient's other noncompliance with medication regimen for other reason; F90.9 Attention-deficit hyperactivity disorder, unspecified type; F41.9 Anxiety disorder, unspecified; Z11.52 Encounter for screening for COVID-19; Z28.310 Unvaccinated for COVID-19; Z79.899 Other long term (current) drug therapy; Z88.8 Allergy status to other drugs, medicaments and biological substances; Z71.51 Drug abuse counseling and surveillance of drug abuser
CPT/HCPCS: 80306; 82075; 87635; 99285

== ENCOUNTER 2023-10-20 09:40 | Inpatient (IN) | payer MEDICAID, OTHER ==
--- NOTE | 2023-10-20 10:53 | ED ---
Psych HPI <Prieto Vivar - Last Filed: 10/20/23 13:07> - General Source: patient, RN notes reviewed Mode of arrival: ambulatory Limitations: no limitations <Hattie Pandya - Last Filed: 10/20/23 16:08> - General Chief Complaint: Psychiatric Symptoms Stated Complaint: Mental Health Time Seen by Provider: 10/20/23 10:44 - History of Present Illness Initial Comments: This is a 23-year-old male who presents to the emergency department for a mental health evaluation. Patient is petitioned by [employer]. He was reportedly found throwing trash into the street and making homicidal statements. He was saying that he was going to kill people and made references to shooting them. He denies any suicidal ideations. When [employer] took the patient into custody he did have a knife on him. He was discharged from 3 at this facility yesterday. States that he is not taking any medication. Patient has a history of methamphetamine abuse and is fairly restless and constantly moving his upper extremities. He is also uncooperative on exam and refusing to give much information. (Hattie Pandya) - Related Data Previous Rx's Medication Instructions Recorded ARIPiprazole IM SYRINGE [Abilify 400 mg IM QMONTHLY #1 each 10/19/23 Maintena Syringe] ARIPiprazole [Abilify] 15 mg PO DAILY 11 Days #11 tab 10/19/23 Nicotine 14Mg/24Hr Patch [Habitrol] 1 patch TRANSDERM DAILY 14 Days 10/19/23 #14 patch Nicotine Gum (Polacrilex) 2 mg BUCCAL Q4HR PRN pieceofgum 10/19/23 [Nicorette] OLANZapine [ZyPREXA] 7.5 mg PO DAILY PRN 30 Days #30 tab 10/19/23 traZODone HCL 150 mg PO HS 30 Days #30 tablet 10/19/23 Allergies Allergy/AdvReac Type Severity Reaction Status Date / Time fluphenazine [From Prolixin] AdvReac Severe Swelling Verified 10/20/23 12:09 haloperidol [From Haldol] AdvReac Severe Unknown Verified 10/20/23 12:09 Review of Systems ROS Other: All systems not noted in ROS Statement are negative. <Prieto Vivar - Last Filed: 10/20/23 13:07> ROS Other: All systems not noted in ROS Statement are negative. <Hattie Pandya - Last Filed: 10/20/23 16:08> ROS Statement: Those systems with pertinent positive or pertinent negative responses have been documented in the HPI. Past Medical History Past Medical History: No Reported History History of Any Multi-Drug Resistant Organisms: None Reported Past Surgical History: No Surgical Hx Reported Past Psychological History: Unable to Obtain Smoking Status: Current every day smoker Past Alcohol Use History: None Reported Past Drug Use History: Methamphetamine - Past Family History Mother Family Medical History: COPD <Hattie Pandya - Last Filed: 10/20/23 16:08> General Exam Limitations: no limitations General appearance: alert, in no apparent distress Head exam: Present: atraumatic, normocephalic, normal inspection Respiratory exam: Present: normal lung sounds bilaterally. Absent: respiratory distress, wheezes, rales, rhonchi, stridor Cardiovascular Exam: Present: regular rate, normal rhythm, normal heart sounds. Absent: systolic murmur, diastolic murmur, rubs, gallop, clicks Neurological exam: Present: alert, oriented X3, CN II-XII intact Psychiatric exam: Present: agitated, homicidal ideation. Absent: suicidal ideation Expanded Focused psych exam: Present: psychomotor agitation, restlessness Skin exam: Present: warm, dry, intact, normal color. Absent: rash <Hattie Pandya - Last Filed: 10/20/23 16:08> Course <Prieto Vivar - Last Filed: 10/20/23 13:07> Vital Signs 10/20/23 10/20/23 09:43 15:20 Temperature 98.2 F 97.6 F Pulse Rate 116 H 85 Respiratory 18 18 Rate Blood Pressure 134/74 131/81 O2 Sat by Pulse 96 100 Oximetry - Reevaluation(s) Reevaluation #1: 10/20/23 13:07 I evaluated this patient in the emergency department, the EPS nurse states that the patient will be admitted and required a clinical certification. I completed the clinical CERT and agree with the assessment to admit this patient. (Prieto Vivar) Medical Decision Making <Hattie Pandya - Last Filed: 10/20/23 16:08> - Medical Decision Making This is a 23 year old male who presents to the emergency department for psychiatric evaluation. Was pt. sent in by a medical professional or institution? @ -No Did you speak to anyone other than the patient for history? @ -Police provided the majority of the history. Did you review nursing and triage notes? @ -Yes, and I agree, it is accurate with regards to the patient's symptoms. Were old charts reviewed? @ -No Differential Diagnosis? @ -Differential Mental Health: Depression, anxiety, bipolar, psychosis, schizophrenia, borderline personality, situational depression, adjustment disorder, behavioral disorder, brain tumor, malingering, substance abuse, encephalopathy, medication reaction, dementia, hypothyroidism, degenerative neurologic disorder, lupus.... This is not meant to be all-inclusive list EKG interpreted by me (3pts min.)? @ -Not obtained X-rays interpreted by me (1pt min.)? @ -Not obtained CT interpreted by me (1pt min.)? @ -Not obtained U/S interpreted by me (1pt. min.)? @ -Not obtained What testing was considered but not performed? (CT, X-rays, U/S, labs)? Why? @ -None What meds were considered but not given? Why? @ -None Did you discuss the management of the patient with other professionals? @ -Yes, Donnie with EPS who advised that the patient will be admitted on an involuntary basis for increasing agitation, psychosis, and homicidal ideations. Did you reconcile home meds? @ -No Was smoking cessation discussed for >3mins.? @ -No Was critical care preformed (if so, how long)? @ -No Were there social determinants of health that impacted care today? How? (Homelessness, low income, unemployed, alcoholism, drug addiction, transportation, low edu. Level, literacy, decrease access to med. care, usp, rehab)? @ -No Was there de-escalation of care discussed even if they declined? (Discuss DNR or withdrawal of care, Hospice)? @ -No What co-morbidities impacted this encounter? (DM, HTN, Smoking, COPD, CAD, Cancer, CVA, Hep., AIDS, mental health diagnosis, sleep apnea, morbid obesity)? @ -Drug addiction, schizoaffective disorder Was patient admitted / discharged? @ -Admitted. Patient's BAT was 0.0 on arrival and he was cleared for EPS evaluation. Urine drug screen positive for amphetamine, methamphetamine, and marijuana. EPS evaluated the patient and advised that he will be admitted to the psychiatric unit for increasing psychosis, agitation, paranoia, and homicidal ideations. Patient will be signed in on an involuntary basis. Clinical certification filled out by ED attending, Dr. Vivar. Undiagnosed new problem with uncertain prognosis? @ -None Drug Therapy requiring intensive monitoring for toxicity (Heparin, Nitro, Insulin, Cardizem)? @ -None Were any procedures done? @ -None Diagnosis/symptom? @ -Psychosis, agitation, homicidal ideations, paranoia Acute, or Chronic, or Acute on Chronic? @ -Acute Uncomplicated (without systemic symptoms) or Complicated (systemic symptoms)? @ -Uncomplicated Side effects of treatment? @ -None Exacerbation, Progression, or Severe Exacerbation] @ -Not applicable Poses a threat to life or bodily function? @ -Yes, can lead to self-harm and This case was discussed in detail with the attending ED physician, Dr. Vivar. Presentation, findings, and treatment plan discussed in detail as well. (Hattie Pandya) - Lab Data Lab Results 10/20/23 10/20/23 10/20/23 Range/Units 14:21 14:21 14:30 Urine Color Colorless Urine Appearance Clear (Clear) Urine pH 7.0 (5.0-8.0) Ur Specific [place] 1.005 (1.001-1.035) Urine Protein Negative (Negative) Urine Glucose (UA) Negative (Negative) Urine Ketones Negative (Negative) Urine Blood Negative (Negative) Urine Nitrite Negative (Negative) Urine Bilirubin Negative (Negative) Urine Urobilinogen <2.0 (<2.0) mg/dL Ur Leukocyte Esterase Negative (Negative) Urine Opiates Screen Not Detected (NotDetected) Ur Oxycodone Screen Not Detected (NotDetected) Urine Methadone Screen Not Detected (NotDetected) Ur Barbiturates Screen Not Detected (NotDetected) U Tricyclic Antidepress Not Detected (NotDetected) Ur Phencyclidine Scrn Not Detected (NotDetected) Ur Amphetamines Screen Detected H (NotDetected) U Methamphetamines Scrn Detected H (NotDetected) U Benzodiazepines Scrn Not Detected (NotDetected) Urine Cocaine Screen Not Detected (NotDetected) U Marijuana (THC) Screen Detected H (NotDetected) SARS-CoV-2 (PCR) Not Detected (Not Detectd) Disposition <Prieto Vivar - Last Filed: 10/20/23 13:07> <Hattie Pandya - Last Filed: 10/20/23 16:08> Clinical Impression: Psychosis, Homicidal ideations, Paranoia Disposition: TRANSFER TO PSYCH HOSP/UNIT
[2023-10-20] MEDS: LORazepam 2 MG/ML INJ IM STA ×2 (13:13→14:35)
[2023-10-20] MEDS: OLANZapine 10 MG VIAL IM STA (14:35)
[2023-10-20 14:56] LABS: Appearance,Urine Clear (Clear); Bilirubin,Urine Negative (Negative); Blood,Urine Negative (Negative); Color,Urine Colorless; Glucose,Urine (UA) Negative (Negative); Ketones,Urine Negative (Negative); Leukocyte Esterase,Urine Negative (Negative); Nitrite,Urine Negative (Negative); Protein,Urine Negative (Negative); Specific Gravity,Urine 1.005 (1.001-1.035); Urobilinogen,Urine <2.0 mg/dL (<2.0)
[2023-10-20 15:10] LABS: Amphetamine Screen,Urine Detected (NotDetected); Barbiturate Screen,Urine Not Detected (NotDetected); Benzodiazepines Screen,Urine Not Detected (NotDetected); Cocaine Screen,Urine Not Detected (NotDetected); Methadone Screen, Urine Not Detected (NotDetected); Opiate Screen,Urine Not Detected (NotDetected); Oxycodone Screen, Urine Not Detected (NotDetected); Phencyclidine Screen,Urine Not Detected (NotDetected); Tricyclic Antidepressant,Urine Not Detected (NotDetected); Urn Cannabinoid Scrn Detected (NotDetected)
[2023-10-20] MEDS ORDERED: MAG HYDROX/AL HYDROX/SIMETH 355 ML BOTTLE PO PRN (16:28)
[2023-10-20] MEDS ORDERED: MAGNESIUM HYDROXIDE 2,400 MG/30 ML CUP PO PRN (16:28)
[2023-10-20] MEDS ORDERED: IBUPROFEN 600 MG TAB PO PRN (16:28)
[2023-10-20] MEDS ORDERED: ACETAMINOPHEN TAB 325 MG TAB PO PRN (16:28)
[2023-10-20] MEDS ORDERED: NICOTINE GUM (POLACRILEX) 2 MG GUM BUCCAL PRN (16:30)
--- NOTE | 2023-10-20 23:49 | P.PN ---
Progress Note - Text Progress Note Date: 10/20/23 Attempted to see the patient in the mental health unit. Informed by the mental health unit RN that the patient was actively psychotic and has been sedated and is currently inappropriate for evaluation. Will attempt again tomorrow.
[2023-10-20] MEDS: traZODone HCL 100 MG TAB PO SCH (23:59)
[2023-10-21] MEDS: ARIPiprazole 15 MG TAB PO SCH (08:31)
[2023-10-21] MEDS: DIVALPROEX ER 500 MG TAB.ER.24H PO SCH (11:31)
[2023-10-21] MEDS: NICOTINE 21MG/24HR PATCH TRANSDERM SCH (11:31)
[2023-10-21] MEDS ORDERED: WATER FOR INJECTION, STERILE 10 ML IV ONE (11:44)
[2023-10-21] MEDS: OLANZapine 10 MG VIAL IM PRN (11:45)
--- NOTE | 2023-10-21 11:45 | P.HP ---
Psychiatric H&P - . H&P Date: 10/21/23 History & Physical: Allergies Allergy/AdvReac Type Severity Reaction Status Date / Time fluphenazine from Prolixin AdvReac Severe Swelling Verified 10/20/23 12:09 haloperidol from Haldol AdvReac Severe Unknown Verified 10/20/23 12:09 Vital Signs Temp 97.5 F L 10/20/23 18:22 Pulse 108 H 10/21/23 08:31 Resp 18 10/20/23 18:22 BP 111/71 10/21/23 08:31 Pulse Ox 97 10/20/23 18:22 FiO2 Intake & Output 10/20/23 10/21/23 10/21/23 18:59 06:59 18:59 Weight 81.193 kg Laboratory Last Values Urine Color Colorless 10/20/23 14:21 Urine Appearance Clear (Clear) 10/20/23 14:21 Urine pH 7.0 (5.0-8.0) 10/20/23 14:21 Ur Specific [place] 1.005 (1.001-1.035) 10/20/23 14:21 Urine Protein Negative (Negative) 10/20/23 14:21 Urine Glucose (UA) Negative (Negative) 10/20/23 14:21 Urine Ketones Negative (Negative) 10/20/23 14:21 Urine Blood Negative (Negative) 10/20/23 14:21 Urine Nitrite Negative (Negative) 10/20/23 14:21 Urine Bilirubin Negative (Negative) 10/20/23 14:21 Urine Urobilinogen <2.0 mg/dL (<2.0) 10/20/23 14:21 Ur Leukocyte Esterase Negative (Negative) 10/20/23 14:21 Urine Opiates Screen Not Detected (NotDetected) 10/20/23 14:21 Ur Oxycodone Screen Not Detected (NotDetected) 10/20/23 14:21 Urine Methadone Screen Not Detected (NotDetected) 10/20/23 14:21 Ur Barbiturates Screen Not Detected (NotDetected) 10/20/23 14:21 U Tricyclic Antidepress Not Detected (NotDetected) 10/20/23 14:21 Ur Phencyclidine Scrn Not Detected (NotDetected) 10/20/23 14:21 Ur Amphetamines Screen Detected (NotDetected) H 10/20/23 14:21 U Methamphetamines Scrn Detected (NotDetected) H 10/20/23 14:21 U Benzodiazepines Scrn Not Detected (NotDetected) 10/20/23 14:21 Urine Cocaine Screen Not Detected (NotDetected) 10/20/23 14:21 U Marijuana (THC) Screen Detected (NotDetected) H 10/20/23 14:21 SARS-CoV-2 (PCR) Not Detected (Not Detectd) 10/20/23 14:30 10/21/23 09:20 IDENTIFYING DATA: Patient is a 23-year-old male , lives with his mother. HPI: Patient was seen by EPS SW and according to report "Clinician met denise Coto in [facility] to eval. Cl bizzare, agitated, shouting at times, responding to internal stimuli, oppositional, delusional. Continues with paranoia reports police sirens are threatening to kill them. Brought in via PD with PET after being called due to cl walking around the street throwing trash, [place] toward people threatening to kill them, no specific target named, Cl referenncing having " my people" join them also making referrences to guns. When taken into custody cl had a 8" blade on them. Cl behaving and acting as if they are a "gangster rapper." Cl has psycho motor agitation, constant movement, fight of ideas, pressured speech. Cl discharged from [facility] on 10/19/23. Cl refused to answer if they used any substances following D/C. " Bro, its about freedom, I am doing what I can for my people, let me out of this bitch so I can keep the sirens off me. So they don't shoot me." Cl continues to mutter something and shake the bed back and forth underneath them. Cl routinely hitting their legs and hands when making statements. Cl remains disorganized, tangential, loose associations, Aud arin, paranoia, with bizarre behaviors. Judgement/insight/impulse control poor, loss of conceptualization and abstraction, labile, minimizing." Patient was just discharged from the mental health unit 1 day before. He was given Abilify Maintena injection prior to discharge, he was on a deferral with the court. Patient was seen today laying in bed, he received several as needed medications before being admitted to the unit. He was initially somewhat lethargic however woke up and began pacing the room. Continues to display very poor insight and judgment, was very focused on discharge. He appeared to be fairly manipulative and states that he went out" got high again" and also claims that he did not sheepskin pickler his medications or take any of his medications and did not plan on doing that. He was minimizing his need for hospitalization and medications. We spoke about other alternatives to medications and patient change the subject and did not want to speak about it. He has very poor impulse control poor insight. He is denying any problems with sleep, denies any problems with appetite. Denies any auditory or visual hallucinations. Denies any suicidal homicidal ideations intent or plan. Claims that he did use methamphetamine and is evasive and did not answer questions about the other recreational drugs. PAST PSYCHIATRIC HISTORY: Patient has a history of schizoaffective disorder st imulant use disorder cannabis use disorder and nicotine dependence. He has had multiple prior hospitalizations, last psychiatric admission was 2 days ago on the mental health unit. Patient is currently on Abilify p.o. and also received the Abilify Maintena injection. he was also on trazodone. he denies any history of suicide attempts. He has been seen at the [facility] as of 10/06/23 which was the date of his last visit. PMH: He denies having any chronic medical problems CHEMICAL DEPENDENCY HISTORY: Frequent meth use; denies any present use of other substances though previously documented use of THC. Denies regular consumption of alcohol. FAMILY PSYCHIATRIC/SUBSTANCE USE HISTORY: Family history of substance use disorders SOCIAL HISTORY: Patient was born and raised in [place]. He presently resides with his mom and shares a home with several other people as well. He ended his educational journey around the eighth or ninth grade. He has not had sustained employment. He is not currently in a relationship and does not have any children. He has previously been incarcerated most recently for about a year and was released around July or August of this year. Review of records that incarceration was secondary to stealing a car. MENTAL STATUS EXAM: General Appearance: Patient appears to be tall, discheveled hair, uncooperative, impulsive. Patient appears to have poor hygiene and grooming. Behavior: Patient is not displaying agitated behavior. impuslive, childlike. Speech: Patient's speech is fluent and nonpressured. Mood/Affect: Patient reports their mood is "fine", affect is congruent and irritable. Suicidality/Homicidality: Patient denies having any homicidal ideation intent or plan. Denies any suicidal ideations intent or plan Perceptions: Patient denies any visual hallucinations and denies any auditory hallucinations Though content/process: Some thought disorganization. paranoia. demanding discharge, minimizing Memory and concentration: alert and oriented to person and place Judgment and insight: chronically Poor and impulsive. STRENGTHS/WEAKNESSES: strength is that patient is resilient. Weakness is that patient has poor judgment/poor impulse control and does not have insight about his mental health INTELLECT: below average IMPRESSIONS: Schizoaffective disorder, bipolar type methamphetamine use disorder cannabis use disorder nicotine dependence non compliance with medications PLAN: -Patient is admitted under involuntary status as he is on an active deferral on the [facility] for stabilization of psychiatric symptoms and safety. Patient has not signed adult voluntary form and medication consent and is placed in patient's chart. -Medications : Start Depakote ER 500 mg twice daily for mood stabilization/aggression, clonidine 0.1 mg nightly for impulsivity/sleep, trazodone 100 mg nightly for sleep/mood, continue with Abilify p.o. 15 mg for mood stabilization until 10/30. Patient received Abilify Maintena 400 mg IM on , next dose will be due q. monthly on 11/12 -Zyprexa PRN for agitation/aggression -Patient was counselled on substance abuse and desired to cut back on use, patient was offered rehab however declined at this time. -Patient was informed of the risks, benefits and side effects of the medication and patient verbally consented to taking the medications. Patient signed med consent form and was placed in chart. -Internal Medicine consult to perform medical evaluation and physical. -NRT -nicotine gum -SW on board for discharge planning. Encourage patient to participate in groups to work on coping skills. A demand for hearing was filed and will await court date.
[2023-10-21] MEDS ORDERED: traZODone HCL 100 MG TAB PO SCH (21:00)
[2023-10-21] MEDS: cloNIDine HCL 0.1 MG TAB PO SCH (21:25)
[2023-10-21] MEDS: traZODone HCL 100 MG TAB PO SCH (21:25)
[2023-10-21] MEDS: hydrOXYzine pamoate 25 MG CAP PO PRN (21:28)
[2023-10-22] MEDS: ARIPiprazole 15 MG TAB PO SCH (09:19)
--- NOTE | 2023-10-22 10:13 | P.PN ---
Progress Note - Text Progress Note Date: 10/22/23 Interval History: Patient was seen in his room, and was directable and agreeable to speak with lubna campa at the bedside. He is much calmer than yesterday. He states that he is good. Central Office Frame Wirer explained the court process to him, because there was a demand filed for his order. Patient was told that his hearing is on next Thursday, patient verbalized understanding. Patient claims to have slept well last night. Patient states that he is getting up for meals, and is going to try to go to some groups today. At this time patient denies any suicidal or homicidal ideations, intent or plan. Patient denies any auditory, visual hallucinations and denies any paranoia or delusions. Patient denies any side effects from the medications and has been compliant with meds. MENTAL STATUS EXAM: General Appearance: Patient appears to be tall, disheveled hair, uncooperative, impulsive. Patient appears to have poor hygiene and grooming. Behavior: Patient is not displaying agitated behavior. impuslive, childlike. Speech: Patient's speech is fluent and nonpressured. Mood/Affect: Patient reports their mood is "fine", affect is congruent and irritable. Suicidality/Homicidality: Patient denies having any homicidal ideation intent or plan. Denies any suicidal ideations intent or plan Perceptions: Patient denies any visual hallucinations and denies any auditory hallucinations Though content/process: Some thought disorganization. paranoia. demanding discharge, minimizing Memory and concentration: alert and oriented to person and place Judgment and insight: chronically Poor and impulsive. IMPRESSIONS: Schizoaffective disorder, bipolar type methamphetamine use disorder cannabis use disorder nicotine dependence non compliance with medications PLAN: -Patient is admitted under involuntary status as he is on an active deferral on the [facility] for stabilization of psychiatric symptoms and safety. Patient has not signed adult voluntary form and medication consent and is placed in patient's chart. -Medications : Depakote ER 500 mg twice daily for mood stabilization/aggression, clonidine 0.1 mg nightly for impulsivity/sleep, trazodone 100 mg nightly for sleep/mood, continue with Abilify p.o. 15 mg for mood stabilization until 10/30. Patient received Abilify Maintena 400 mg IM on 10/15, next dose will be due qmonthly on 11/12 -Zyprexa PRN for agitation/aggression -NRT - nicotine gum -SW on board for discharge planning. Encourage patient to participate in groups to work on coping skills. awaiting hearing scheduled for thu10/28/23
[2023-10-22] MEDS: OLANZapine 10 MG TAB PO PRN (13:27)
[2023-10-22] MEDS: chlorproMAZINE 25 MG TAB PO ONE (19:05)
--- NOTE | 2023-10-23 11:55 | P.PN ---
Progress Note - Text Progress Note Date: 10/23/23 Interval History: Patient was seen in his room, and was directable and agreeable to speak with lubna campa at the bedside. patient states that he is feeling bit tired this morning. He claims that he is feeling better overall. He did have some agitation last night required when necessary Thorazine and Zyprexa. He continues to be fairly superficial, childlike at times. He claims when he is discharged she can still go back to his mother's house he believes. He is not going to many groups, continues to want the hallways at times, less impulsive and agitated. he states that he did not sleep well last night. Patient states that he is getting up for meals. At this time patient denies any suicidal or homicidal ideations, intent or plan. Patient denies any auditory, visual hallucinations and denies any paranoia or delusions. Patient denies any side effects from the medications and has been compliant with meds. MENTAL STATUS EXAM: General Appearance: Patient appears to be tall, disheveled hair, more cooperative, less impulsive. Patient appears to have poor hygiene and grooming. Behavior: Patient is not displaying agitated behavior. impuslive, less childlike. Speech: Patient's speech is fluent and nonpressured. Mood/Affect: Patient reports their mood is "a bit better", affect is congruent and less irritable. Suicidality/Homicidality: Patient denies having any homicidal ideation intent or plan. Denies any suicidal ideations intent or plan Perceptions: Patient denies any visual hallucinations and denies any auditory hallucinations Though content/process: Some thought disorganization, improving. focused on demanding discharge, minimizing Memory and concentration: alert and oriented to person and place Judgment and insight: chronically Poor and impulsive. improving mildly IMPRESSIONS: Schizoaffective disorder, bipolar type methamphetamine use disorder cannabis use disorder nicotine dependence non compliance with medications PLAN: -Patient is admitted under involuntary status as he is on an active deferral on the [facility] for stabilization of psychiatric symptoms and safety. Patient has not signed adult voluntary form and medication consent and is placed in patient's chart. -Medications : increase Depakote ER 500 mg daily + 1000 mg qhs for mood stabilization/aggression, clonidine 0.1 mg nightly for impulsivity/sleep, trazodone 100 mg nightly for sleep/mood, continue with Abilify p.o. 15 mg for mood stabilization until 10/30. Patient received Abilify Maintena 400 mg IM on 10/15, next dose will be due qmonthly on 11/12 -check depakene level thursday morning. -Zyprexa PRN for agitation/aggression -NRT - nicotine gum - on board for discharge planning. Encourage patient to participate in groups to work on coping skills. awaiting hearing scheduled for thu10/28/23.
[2023-10-23] MEDS: DIVALPROEX ER 500 MG TAB.ER.24H PO SCH (19:44)
[2023-10-24] MEDS: DIVALPROEX ER 500 MG TAB.ER.24H PO SCH (09:57)
[2023-10-24] MEDS ORDERED: WATER FOR INJECTION, STERILE 10 ML IV ONE (11:22)
--- NOTE | 2023-10-24 16:10 | P.PN ---
Progress Note - Text Interval History: Per staff, patient has been yelling, hitting grossman, been very irritable, and demanding discharge. He eventually required IM. Multiple attempts were majde to see patient but he was sleeping in his room after getting the IM. MENTAL STATUS EXAM: General Appearance: Patient appears to be tall, disheveled hair, more coop erative, less impulsive. Patient appears to have poor hygiene and grooming. Sleeping in room. Behavior: uncooperative Speech: could not assess as pt was drowsy due to IM Mood/Affect: could not assess as pt was drowsy due to IM Suicidality/Homicidality: could not assess as pt was drowsy due to IM Perceptions: could not assess as pt was drowsy due to IM Though content/process: could not assess as pt was drowsy due to IM Memory and concentration:could not assess as pt was drowsy due to IM Judgment and insight: chronically Poor and impulsive IMPRESSIONS: Schizoaffective disorder, bipolar type methamphetamine use disorder cannabis use disorder nicotine dependence non compliance with medications PLAN: increase depakote to 1000 mg bid, continue other meds and remainder of plan
[2023-10-25] MEDS: DIVALPROEX ER 500 MG TAB.ER.24H PO SCH (09:33)
[2023-10-25] MEDS ORDERED: WATER FOR INJECTION, STERILE 10 ML IV ONE (13:48)
--- NOTE | 2023-10-25 14:36 | P.PN ---
Progress Note - Text Interval history: per nursing staff, patient has been verbally aggressive at times.At this time patient denies any suicidal or homicidal ideations intent or plan. Denies any Auditory or visual hallucinations. Patient denies any side effects from the medications and has been compliant with meds. Mental status exam: General Appearance: [Patient appears to be event stated age is alert, directable, and cooperative.] Behavior: [No agitated behavior. Patient is calm and directable] Speech: Patient's speech is fluent and nonpressured. Mood/Affect: Mood is improving mildly, affect is congruent and constricted. Suicidality/Homicidality: Patient denies having any suicidal or homicidal ideation intent or plan. Perceptions: Patient denies any auditory or visual hallucinations. Though content/process: [There is no evidence of any delusional thought content and thought process is linear and goal-directed.] Memory and concentration: AOX3, grossly intact for the purposes of this session Judgment and insight: improving mildly Assessment/Plan: Continue with current diagnosis. Patient continues to meet criteria for inpatient psychiatric admission for symptom stabilization and safety.[Patient will be maintained on current psychotropic medication regimen.] Monitor for medication compliance and for any psychotropic medication side effects. Will continue to monitor ongoing response to treatment. Encouraged participation in milieu.
[2023-10-25 14:37] VITALS: TEMP 97.4
[2023-10-25] MEDS: chlorproMAZINE 25 MG/ML 2 ML AMP IM ONE (18:50)
[2023-10-25] MEDS: LORazepam 2 MG/ML INJ IM STA (18:50)
--- NOTE | 2023-10-26 10:21 | P.PN ---
Progress Note - Text Progress Note Date: 10/26/23 Interval History: Patient was seen in his room laying in bed. He was directable and agreeable to speak with fiction and nonfiction writer prose at the bedside. He claims that he had a good weekend overall. Denied any overnight complaints. He claims that he is speaking with his mother over the phone and claims that he is able to go back home. He asked more questions about the court process and the court hearing date on Thursday. He claims that the Depakote is helping him "a lot". He is reported to be less impulsive and agitated. Claims that he is sleeping a bit better at nighttime. Patient states that he is getting up for meals. At this time patient denies any suicidal or homicidal ideations, intent or plan. Patient denies any auditory, visual hallucinations and denies any paranoia or delusions. Patient denies any side effects from the medications and has been compliant with meds. MENTAL STATUS EXAM: General Appearance: Patient appears to be tall, disheveled hair, more cooperative, less impulsive. Patient appears to have poor hygiene and grooming. Behavior: Patient is not displaying agitated behavior. less impuslive, less childlike. Speech: Patient's speech is fluent and nonpressured. Mood/Affect: Patient reports their mood is "alright", affect is congruent and less irritable. Suicidality/Homicidality: Patient denies having any homicidal ideation intent or plan. Denies any suicidal ideations intent or plan Perceptions: Patient denies any visual hallucinations and denies any auditory hallucinations Though content/process: Some thought disorganization, improving. Less focused on discharge. Memory and concentration: alert and oriented to person and place Judgment and insight: chronically Poor and impulsive. improving mildly IMPRESSIONS: Schizoaffective disorder, bipolar type methamphetamine use disorder cannabis use disorder nicotine dependence non compliance with medications PLAN: -Patient is admitted under involuntary status as he is on an active deferral on the [facility] for stabilization of psychiatric symptoms and safety. Patient has not signed adult voluntary form and medication consent and is placed in patient's chart. -Medications : Depakote ER 1000 mg bid for mood stabilization/aggression, clonidine 0.1 mg nightly for impulsivity/sleep, trazodone 100 mg nightly for sleep/mood, continue with Abilify p.o. 15 mg for mood stabilization until 10/30. Patient received Abilify Maintena 400 mg IM on 10/15, next dose will be due qmonthly on 11/12 -check depakene level thursday. -Zyprexa PRN for agitation/aggression -NRT - nicotine gum - on board for discharge planning. Encourage patient to participate in groups to work on coping skills. awaiting hearing scheduled for thu10/28/23. Likely discharge Thursday after court hearing date back home.
[2023-10-26] MEDS ORDERED: WATER FOR INJECTION, STERILE 10 ML IV ONE (19:53)
--- NOTE | 2023-10-27 10:21 | P.PN ---
Progress Note - Text Progress Note Date: 10/27/23 Interval History: Patient was seen in his room laying in bed. He was directable and agreeable to speak with web content writer at the bedside. He was sleeping initially, but easily awoken. He states that he feels like he is doing better. Patient is less intrusive, and appropriate with conversation with this web content writer. He mentioned speaking with his mother on the phone, and that she told him that he could return home upon discharge. His court hearing is tomorrow, 10/27, and he will likely be discharged after his hearing. He states that the Depakote is helping him stabilize his mood, and that he was able to get through an anxiety attack on his own. He continues to be less impulsive and agitated. Claims that he is sleeping wellr at nighttime. Patient states that he is getting up for meals. At this time patient denies any suicidal or homicidal ideations, intent or plan. Patient denies any auditory, visual hallucinations and denies any paranoia or delusions. Patient denies any side effects from the medications and has been compliant with meds. MENTAL STATUS EXAM: General Appearance: Patient appears to be tall, disheveled hair, more cooperative, less impulsive. Patient appears to have poor hygiene and grooming. Behavior: Patient is not displaying agitated behavior. less impuslive, less c hildlike. improving Speech: Patient's speech is fluent and nonpressured. Mood/Affect: Patient reports their mood is "good", affect is congruent and less irritable. mildly improving Suicidality/Homicidality: Patient denies having any homicidal ideation intent or plan. Denies any suicidal ideations intent or plan Perceptions: Patient denies any visual hallucinations and denies any auditory hallucinations Though content/process: There is no evidence of any delusional thought content Memory and concentration: alert and oriented to person and place Judgment and insight: chronically Poor and impulsive. improving mildly IMPRESSIONS: Schizoaffective disorder, bipolar type methamphetamine use disorder cannabis use disorder nicotine dependence non compliance with medications PLAN: -Patient is admitted under involuntary status as he is on an active deferral on the [facility] for stabilization of psychiatric symptoms and safety. Patient has not signed adult voluntary form and medication consent and is placed in patient's chart. -Medications : Depakote ER 1000 mg bid for mood stabilization/aggression, clonidine 0.1 mg nightly for impulsivity/sleep, trazodone 100 mg nightly for sleep/mood, continue with Abilify p.o. 15 mg for mood stabilization until 10/30. Patient received Abilify Maintena 400 mg IM on 10/15, next dose will be due qmonthly on 11/12 -check depakene level thursday. -Zyprexa PRN for agitation/aggression -NRT - nicotine gum - on board for discharge planning. Encourage patient to participate in groups to work on coping skills. awaiting hearing scheduled for thu10/28/23. Likely discharge Thursday after court hearing date back home.
[2023-10-27] MEDS: OLANZapine 10 MG TAB PO SCH (17:05)
[2023-10-27] MEDS: traZODone HCL 100 MG TAB PO SCH (20:53)
[2023-10-27] MEDS ORDERED: WATER FOR INJECTION, STERILE 10 ML IV ONE (21:43)
[2023-10-28] MEDS ORDERED: MIRTAZAPINE 15 MG TAB PO PRN (09:54)
--- NOTE | 2023-10-28 10:19 | P.PN ---
Progress Note - Text Progress Note Date: 10/28/23 Interval History: Patient was seen in his room laying in bed. He was directable and agreeable to speak with travel writer at the bedside. He states that he does ask for IM medications at night, because he wants to just sleep, and he has a hard time sleeping here. He stated that when he is in the hospital, he "gets in his own head" and just wants to sleep it off. He is asking about discharge, and travel writer explained to the patient that he needs to be stabilized, and not requiring PRN IM medication. he receiving IM zyorexa last night due to agitation. Patient verbalized understanding. He continues to be less impulsive and less agitated. Claims that he is sleeping well at nighttime, with medication. Patient states that he is getting up for meals. At this time patient denies any suicidal or homicidal ideations, intent or plan. Patient denies any auditory, visual hallucinations and denies any paranoia or delusions. Patient denies any side effects from the medications and has been compliant with meds. MENTAL STATUS EXAM: General Appearance: Patient appears to be tall, disheveled hair, more cooperative, less impulsive. Patient appears to have poor hygiene and grooming. Behavior: Patient is not displaying agitated behavior. less impuslive, less childlike. improving Speech: Patient's speech is fluent and nonpressured. Mood/Affect: Patient reports their mood is "good", affect is congruent and less irritable. mildly improving Suicidality/Homicidality: Patient denies having any homicidal ideation intent or plan. Denies any suicidal ideations intent or plan Perceptions: Patient denies any visual hallucinations and denies any auditory hallucinations Though content/process: There is no evidence of any delusional thought content Memory and concentration: alert and oriented to person and place Judgment and insight: chronically Poor and impulsive. improving mildly IMPRESSIONS: Schizoaffective disorder, bipolar type methamphetamine use disorder cannabis use disorder nicotine dependence non compliance with medications PLAN: -Patient is admitted under involuntary status as he is on an active deferral on the [facility] for stabilization of psychiatric symptoms and safety. Patient has not signed adult voluntary form and medication consent and is placed in patient's chart. -Medications : Depakote ER 1000 mg bid for mood stabilization/aggression, clonidine 0.1 mg nightly for impulsivity/sleep, increase trazodone 300 mg nightly for sleep/mood, continue with Abilify p.o. 15 mg for mood stabilization until 10/30. Patient received Abilify Maintena 400 mg IM on 10/15, next dose will be due qmonthly on 11/12, increase Zyprexa 15mg PO at 1600. added melatonin 10 mg qhs for sleep and remeron 15 mg qhs prn for insomnia. -pt is refusing depakene level blood draw -Zyprexa PRN for agitation/aggression -NRT - nicotine gum -SW on board for discharge planning. Encourage patient to participate in groups to work on coping skills. awaiting hearing scheduled for thu10/28/23. Likely discharge back home if patient is improving and not receiving IM prns.
[2023-10-28 11:21] LABS: Glucose,Whole Blood 89 mg/dL (70-110)
[2023-10-28 12:01] VITALS: RESP 20
[2023-10-28] MEDS: OLANZapine 5 MG TAB PO SCH (15:59)
[2023-10-28] MEDS: MELATONIN 5 MG TABLET PO SCH (21:22)
[2023-10-28] MEDS: traZODone HCL 100 MG TAB PO SCH (21:23)
--- NOTE | 2023-10-29 11:14 | P.DS ---
Providers Date of admission: 10/20/23 15:50 Expected date of discharge: 10/29/23 Attending physician: Babar Sinclair MD Consults: 10/20/23 16:28 Consult Physician Routine Consulting Provider: [facility] Consult Reason/Comments: H&P and medical follow up Do you want consulting provider notified?: Yes Primary care physician: Stated None - Discharge Diagnosis(es) (1) Schizoaffective disorder, bipolar type Current Visit: No Status: Acute Priority: High (2) Methamphetamine abuse Current Visit: No Status: Acute Priority: High (3) Non compliance w medication regimen Current Visit: Yes Status: Acute (4) Cannabis use disorder Current Visit: No Status: Acute Priority: Medium (5) Nicotine dependence Current Visit: No Status: Acute Priority: Low Hospital Course: Admission HPI: Admission note was completed by script writer "Patient was seen by EPS SW and according to report "Clinician met denise Coto in [facility] to eval. Cl bizzare, agitated, shouting at times, responding to internal stimuli, oppositional, delusional. Continues with paranoia reports police sirens are threatening to kill them. Brought in via PD with PET after being called due to cl walking around the street throwing trash, [place] toward people threatening to kill them, no specific target named, Cl referenncing having " my people" join them also making referrences to guns. When taken into custody cl had a 8" blade on them. Cl behaving and acting as if they are a "gangster rapper." Cl has psycho motor agitation, constant movement, fight of ideas, pressured speech. Cl discharged from [facility] on 10/19/23. Cl refused to answer if they used any substances following D/C. " Bro, its about freedom, I am doing what I can for my people, let me out of this bitch so I can keep the sirens off me. So they don't shoot me." Cl continues to mutter something and shake the bed back and forth underneath them. Cl routinely hitting their legs and hands when making statements. Cl remains disorganized, tangential, loose associations, Aud arin, paranoia, with bizarre behaviors. Judgement/insight/impulse control poor, loss of conceptualization and abstraction, labile, minimizing." Patient was just discharged from the mental health unit 1 day before. He was given Abilify Maintena injection prior to discharge, he was on a deferral with the court. Patient was seen today laying in bed, he received several as needed medications before being admitted to the unit. He was initially somewhat lethargic however woke up and began pacing the room. Continues to display very poor insight and judgment, was very focused on discharge. He appeared to be fairly manipulative and states that he went out" got high again" and also claims that he did not knot picker cloth his medications or take any of his medications and did not plan on doing that. He was minimizing his need for hospitalization and medications. We spoke about other alternatives to medications and patient change the subject and did not want to speak about it. He has very poor impulse control poor insight. He is denying any problems with sleep, denies any problems with appetite. Denies any auditory or visual hallucinations. Denies any suicidal homicidal ideations intent or plan. Claims that he did use methamphetamine and is evasive and did not answer questions about the other recreational drugs. " Hospital course: Upon admission to the unit patient was admitted involuntarily on a active deferral and a demand for hearing was filed. Patient signed a waiver and stip and agreed to the court order. Patient was initially bizarre, aggressive and required several as needed medications however with time and treatment he eventually got along well with other patients on the unit and followed unit protocol. Patient was compliant with the medications and denied any side effects throughout hospital course. Patient was started on Depakote ER increased to dose of 1000 mg twice daily for mood stabilization/aggression, clonidine 0.1 mg nightly for impulsivity/sleep, trazodone 300 mg nightly for sleep/mood, Abilify p.o. was resumed at 15 mg daily until 10/30. Patient previously received Abilify Maintena 400 mg IM on 10/15 during a previous hospitalization, next dose will be due q. monthly on 11/12 at [facility]. Patient was also placed on Zyprexa 15 mg p.o. at 4 PM scheduled for mood stabilizati on/aggression, melatonin 10 mg nightly for sleep, Remeron 15 mg nightly as needed for insomnia. Patient spoke of his stressors and engaged in therapy both group and individual. Patient was also seen by medical team for history and physical exam. Throughout the course of the hospitalization patient gradually improved with regards to mood, anxiety, aggression, impulsivity, psychosis, sleep and returned back to their baseline level of functioning. On the day of discharge patient denied any suicidal or homicidal ideations intent or plan denied any auditory or visual hallucinations. Patient endorsed wanting to live for his health and family. The patient denied any access to guns or weapons. Patient denied any paranoia and did not endorse any delusions. Patient does have a significant history of substance abuse and was counseled on abstaining from all substances including alcohol and marijuana. Patient was offered however declined inpatient substance-abuse rehab. Patient elected to do outpatient substance use treatment program through [facility]. Patient was also counseled on the medications and need for regular compliance and was encouraged to follow-up with their outpatient appointment for mental health and also for primary care. Prior to discharge a family meeting will be arranged by social research assistant to answer any questions and ensure safety upon discharge. Patient will be discharged back home with his mother, social research assistant spoke to guardian to arrange this and they agree with this plan. Mental status exam: General Appearance: Patient appears to be tall, disheveled hair, stated age is alert, pleasant, and cooperative. Patient is in no acute distress and has improved hygiene and grooming Behavior: Patient is calmly seated without any agitated behavior. Speech: Patient's speech is fluent and nonpressured. Mood/Affect: Patient reports their mood is "good", affect is congruent Suicidality/Homicidality: Patient denies having any suicidal or homicidal ideation intent or plan. Perceptions: Patient denies any auditory or visual hallucinations. Though content/process: There is no evidence of any delusional thought content and thought process is linear and goal-directed. More future oriented Memory and concentration: AOX3, grossly intact for the purposes of this session. Can spell "WORLD" backwards correctly. Judgment and insight: Chronically poor/limited, however has improved with guarded prognosis Impression: Schizoaffective disorder, bipolar type methamphetamine use disorder cannabis use disorder nicotine dependence non compliance with medications Plan: -Continue with discharge today as patient has improved and stabilized psychiatrically and is not currently an imminent threat to himself and/or others. Patient will remain at chronically elevated risk for harm to self and/or others due to his impulsivity and polysubstance abuse. -Continue medications: Depakote ER 1000 mg twice daily for mood stabilization/aggression, clonidine 0.1 mg nightly for impulsivity/sleep, trazodone 300 mg nightly for sleep/mood, continue with Abilify p.o. 15 mg for 3 more days then discontinue, as patient is already on Abilify Maintena 400 mg IM, last dose was given on 10/15, next dose to be due q. monthly on 11/12. Zyprexa 15 mg at 4 PM for mood stabilization, melatonin 10 mg nightly for sleep, Remeron 15 mg nightly as needed for insomnia.. -Patient was counseled on the need for medication compliance and appropriate follow-up at mental health and also primary care for medical issues. Patient verbalized understanding and agreed. -Social work to arrange for and conduct family meeting to ensure safety upon discharge and answer any questions/concerns. Social work also to arrange for patients follow up appointments with [facility] for psychiatric care along with follow up with primary care provider. -Patient counseled on abstaining from recreational drugs and marijuana and alcohol. Was informed/educated on the adverse effects on their physical and mental health. Patient verbally agreed and understood. Patient was offered substance abuse treatment however declined at this time. -Patient was instructed to return to the hospital or seek immediate medical care if their psychiatric or medical symptoms do worsen or reoccur. Allergies Allergy/AdvReac Type Severity Reaction Status Date / Time fluphenazine from Prolixin AdvReac Severe Swelling Verified 10/20/23 12:09 haloperidol from Haldol AdvReac Severe Unknown Verified 10/20/23 12:09 Laboratory Results POC Glucose (mg/dL) 89 mg/dL (70-110) 10/28/23 11:10 POC Glu Spaghetti Machine Operator ID Gracia Cloud 10/28/23 11:10 Urine Color Colorless 10/20/23 14:21 Urine Appearance Clear (Clear) 10/20/23 14:21 Urine pH 7.0 (5.0-8.0) 10/20/23 14:21 Ur Specific Manson 1.005 (1.001-1.035) 10/20/23 14:21 Urine Protein Negative (Negative) 10/20/23 14:21 Urine Glucose (UA) Negative (Negative) 10/20/23 14:21 Urine Ketones Negative (Negative) 10/20/23 14:21 Urine Blood Negative (Negative) 10/20/23 14:21 Urine Nitrite Negative (Negative) 10/20/23 14:21 Urine Bilirubin Negative (Negative) 10/20/23 14:21 Urine Urobilinogen <2.0 mg/dL (<2.0) 10/20/23 14:21 Ur Leukocyte Esterase Negative (Negative) 10/20/23 14:21 Urine Opiates Screen Not Detected (NotDetected) 10/20/23 14:21 Ur Oxycodone Screen Not Detected (NotDetected) 10/20/23 14:21 Urine Methadone Screen Not Detected (NotDetected) 10/20/23 14:21 Ur Barbiturates Screen Not Detected (NotDetected) 10/20/23 14:21 Valproic Acid 77.1 ug/mL 10/28/23 15:33 U Tricyclic Antidepress Not Detected (NotDetected) 10/20/23 14:21 Ur Phencyclidine Scrn Not Detected (NotDetected) 10/20/23 14:21 Ur Amphetamines Screen Detected (NotDetected) H 10/20/23 14:21 U Methamphetamines Scrn Detected (NotDetected) H 10/20/23 14:21 U Benzodiazepines Scrn Not Detected (NotDetected) 10/20/23 14:21 Urine Cocaine Screen Not Detected (NotDetected) 10/20/23 14:21 U Marijuana (THC) Screen Detected (NotDetected) H 10/20/23 14:21 SARS-CoV-2 (PCR) Not Detected (Not Detectd) 10/20/23 14:30 Vital Signs Temp 97.4 F L 10/25/23 14:29 Pulse 90 10/29/23 10:04 Resp 20 10/28/23 12:00 BP 95/56 10/29/23 10:04 Pulse Ox 100 10/28/23 11:15 FiO2 Patient Condition at Discharge: Stable Plan - Discharge Summary Discharge Rx Participant: Yes New Discharge Prescriptions: New Divalproex ER [Depakote ER] 1,000 mg PO HS 30 Days #60 tab Melatonin 10 mg PO HS 30 Days #60 tab Mirtazapine [Remeron] 15 mg PO HS PRN 30 Days #30 tab PRN Reason: Insomnia traZODone HCL 300 mg PO HS 30 Days #30 tab OLANZapine [ZyPREXA] 15 mg PO 1600 30 Days #30 tablet ARIPiprazole [Abilify] 15 mg PO DAILY tab cloNIDine HCL [Catapres] 0.1 mg PO HS 30 Days #30 tab Divalproex ER [Depakote ER] 1,000 mg PO DAILY 30 Days #60 tab hydrOXYzine pamoate [Vistaril] 50 mg PO BID PRN 30 Days #120 cap PRN Reason: Anxiety Continue ARIPiprazole IM SYRINGE [Abilify Maintena Syringe] 400 mg IM QMONTHLY #1 each Nicotine Gum (Polacrilex) [Nicorette] 2 mg BUCCAL Q4HR PRN pieceofgum PRN Reason: Nicotine Cravings Discontinued Nicotine 14Mg/24Hr Patch [Habitrol] 1 patch TRANSDERM DAILY 14 Days #14 patch traZODone HCL 150 mg PO HS 30 Days #30 tablet OLANZapine [ZyPREXA] 7.5 mg PO DAILY PRN 30 Days #30 tab PRN Reason: Agitation Or Acute Anxiety ARIPiprazole [Abilify] 15 mg PO DAILY 11 Days #11 tab Discharge Medication List ARIPiprazole IM SYRINGE [Abilify Maintena Syringe] 400 mg IM QMONTHLY #1 each 10/19/23 [Rx] Nicotine Gum (Polacrilex) [Nicorette] 2 mg BUCCAL Q4HR PRN pieceofgum 10/19/23 [Rx] ARIPiprazole [Abilify] 15 mg PO DAILY tab 10/29/23 [Rx] Divalproex ER [Depakote ER] 1,000 mg PO DAILY 30 Days #60 tab 10/29/23 [Rx] Divalproex ER [Depakote ER] 1,000 mg PO HS 30 Days #60 tab 10/29/23 [Rx] Melatonin 10 mg PO HS 30 Days #60 tab 10/29/23 [Rx] Mirtazapine [Remeron] 15 mg PO HS PRN 30 Days #30 tab 10/29/23 [Rx] OLANZapine [ZyPREXA] 15 mg PO 1600 30 Days #30 tablet 10/29/23 [Rx] cloNIDine HCL [Catapres] 0.1 mg PO HS 30 Days #30 tab 10/29/23 [Rx] hydrOXYzine pamoate [Vistaril] 50 mg PO BID PRN 30 Days #120 cap 10/29/23 [Rx] traZODone HCL 300 mg PO HS 30 Days #30 tab 10/29/23 [Rx] Follow up Appointment(s)/Referral(s): [facility] [Outside] - 11/02/23 10:00 am (11/02/2023 10:00AM - 10:45AM GIOVANI JACKSON 11/03/2023 3:30PM - 4:00PM RUPERTO ULLOA ) None,Stated [Primary Care Provider] - 1-2 days [facility] [NON-STAFF] - 1 Week Patient Instructions/Handouts: Schizoaffective Disorder (DC), Methamphetamine Abuse (DC) Activity/Diet/Wound Care/Special Instructions: Avoid the use of street drugs and alcohol. Take all medications as prescribed. When you are in need of refills on your medications, please contact your outpatient medical provider and/or outpatient psychiatrist. Please go to your scheduled outpatient appointments for aftercare treatment. If symptoms return or become worse, call the crisis line at or and/or visit the nearest emergency room for assistance. National Suicide and Crisis Lifeline - call or text 564. Discharge Disposition: HOME SELF-CARE
[2023-10-29 11:15] VITALS: BP 99/52; PULSE 118
== END 2023-10-29 13:59 | disposition home or self-care (01) | DRG 750 ==
LOC: EC 09:40 → UNDOADMIN 15:50 → 3MHU 15:50
PROVIDERS: ADMIT Psychiatry & Neurology Psychiatry; ATTEND Psychiatry & Neurology Psychiatry
DX: F25.0 Schizoaffective disorder, bipolar type (principal); F12.10 Cannabis abuse, uncomplicated; F15.10 Other stimulant abuse, uncomplicated; F17.200 Nicotine dependence, unspecified, uncomplicated; F41.1 Generalized anxiety disorder; R45.850 Homicidal ideations; Z79.899 Other long term (current) drug therapy; Z91.148 Patient's other noncompliance with medication regimen for other reason; Z28.21 Immunization not carried out because of patient refusal; Z88.8 Allergy status to other drugs, medicaments and biological substances
CPT/HCPCS: 80164; 80306; 81003; 82075; 87635; 96372; 99285

== ENCOUNTER 2023-12-09 16:34 | Inpatient (IN) | payer OTHER ==
[2023-12-09] MEDS: SODIUM CHLORIDE 0.9% 1,000 ML IV STA (16:54)
[2023-12-09 17:06] LABS: Basophils % (A) 0 %; Eosinophils # (A) 0.1 k/uL (0-0.7); Eosinophils % (A) 1 %; HCT 44.3 % (39.0-53.0); Lymphocytes # (A) 1.2 k/uL (1.0-4.8); Lymphocytes % (A) 26 %; MCH 31.5 pg (25.0-35.0); MCHC 33.8 g/dL (31.0-37.0); MCV 93.2 fL (80.0-100.0); Monocytes # (A) 0.2 k/uL (0-1.0); Monocytes % (A) 5 %; Neutrophils # (A) 3.1 k/uL (1.3-7.7); Neutrophils % (A) 66 %; Platelet Count 150 k/uL (150-450); RBC 4.75 m/uL (4.30-5.90); RDW 12.8 % (11.5-15.5); WBC 4.8 k/uL (3.8-10.6)
--- NOTE | 2023-12-09 17:15 | XR ---
EXAMINATION TYPE: XR chest 2V DATE OF EXAM: 12/09/2023 COMPARISON: 2002 INDICATION: Difficulty breathing TECHNIQUE: Frontal and lateral views of the chest are obtained. FINDINGS: The heart size is normal. The pulmonary vasculature is normal. There may be some subtle asymmetry of the lung opacity greater on the right than the left. No discret e consolidation is evident. Consider mild aspiration or atelectasis.. IMPRESSION: 1. Subtle asymmetry of opacity on the right compared to the left. Consider subsegmental atelectasis o r early aspiration.
[2023-12-09 17:19] LABS: ALT 18 U/L (4-49); AST 22 U/L (17-59); African American GFR (CKD) >90 (>60 ml/min/1.73 sqM); Albumin 4.2 g/dL (3.5-5.0); Alkaline Phosphatase 56 U/L (38-126); Anion Gap 8 mmol/L; Blood Urea Nitrogen 13 mg/dL (9-20); Calcium 8.5 mg/dL (8.4-10.2); Carbon Dioxide 25 mmol/L (22-30); Chloride 103 mmol/L (98-107); Creatine Kinase 127 U/L (55-170); Glucose 273 mg/dL (74-99); Non-African American GFR(CKD) 85 (>60 ml/min/1.73 sqM); Potassium 3.8 mmol/L (3.5-5.1); Sodium 136 mmol/L (137-145); Total Bilirubin 0.7 mg/dL (0.2-1.3); Total Protein 6.4 g/dL (6.3-8.2)
[2023-12-09] MEDS: SODIUM CHLORIDE 0.9% 1,000 ML IV SCH (17:53)
[2023-12-09] MEDS: PIPERACILLIN-TAZOBACTAM 3.375 GM in SODIUM CHLORIDE 0.9% 100 ML IVPB SCH (17:56)
[2023-12-09] MEDS ORDERED: NALOXONE 0.4 MG/ML 1 ML VIAL IV PRN (18:30)
--- NOTE | 2023-12-09 18:30 | ED ---
Overdose HPI - General Chief Complaint: Overdose Stated Complaint: Overdose Time Seen by Provider: 12/09/23 16:40 Source: patient, EMS Mode of arrival: EMS Limitations: no limitations - History of Present Illness Initial Comments: 23-year-old male with past medical history of polysubstance abuse who presents emergency department after an overdose. He states that he snorted some heroin and smoked meth around 1 PM. He was home alone when he did this. Unsure when he went unresponsive but his family came home around 4 PM and found him. They started CPR. He was administered intranasal Narcan and called EMS. When EMS found the patient he had had several bouts of emesis. He was still altered and required bagging. En route to the hospital the patient became more arousable and admitted to drug use. He admits to chest pain. Patient is found to be 85% on room air. No history of asthma. Denies any head injury. No other alleviating, precipitating and modifying factors - Related Data Previous Rx's Medication Instructions Recorded ARIPiprazole IM SYRINGE [Abilify 400 mg IM QMONTHLY #1 each 10/19/23 Maintena Syringe] Allergies Allergy/AdvReac Type Severity Reaction Status Date / Time fluphenazine [From Prolixin] AdvReac Severe Swelling Verified 12/09/23 16:45 haloperidol [From Haldol] AdvReac Severe Unknown Verified 12/09/23 16:45 Review of Systems ROS Statement: Those systems with pertinent positive or pertinent negative responses have been documented in the HPI. ROS Other: All systems not noted in ROS Statement are negative. Past Medical History Past Medical History: No Reported History History of Any Multi-Drug Resistant Organisms: None Reported Past Surgical History: No Surgical Hx Reported Past Psychological History: Unable to Obtain Smoking Status: Current every day smoker Past Alcohol Use History: Occasional Past Drug Use History: Methamphetamine - Past Family History Mother Family Medical History: COPD Father Family Medical History: Diabetes Mellitus General Exam Limitations: no limitations General appearance: alert, in no apparent distress Head exam: Present: atraumatic, normocephalic, normal inspection Eye exam: Present: normal appearance, PERRL, EOMI. Absent: scleral icterus, conjunctival injection, periorbital swelling ENT exam: Present: normal exam, mucous membranes moist Neck exam: Present: normal inspection. Absent: tenderness, meningismus, lymphadenopathy Respiratory exam: Present: rales (right base), rhonchi, decreased breath sounds. Absent: respiratory distress, wheezes, stridor Cardiovascular Exam: Present: regular rate, normal rhythm, normal heart sounds. Absent: systolic murmur, diastolic murmur, rubs, gallop, clicks GI/Abdominal exam: Present: soft, normal bowel sounds. Absent: distended, tenderness, guarding, rebound, rigid Extremities exam: Present: normal inspection, full ROM, normal capillary refill. Absent: tenderness, pedal edema, joint swelling, calf tenderness Back exam: Present: normal inspection Neurological exam: Present: alert, oriented X3, CN II-XII intact Psychiatric exam: Present: normal affect, normal mood Skin exam: Present: warm, dry, intact, normal color. Absent: rash Course Vital Signs 12/09/23 12/09/23 12/09/23 16:38 17:24 18:00 Temperature 98 F Pulse Rate 98 94 94 Respiratory 18 20 20 Rate Blood Pressure 137/81 131/75 121/76 O2 Sat by Pulse 91 L 97 96 Oximetry 12/09/23 12/09/23 12/09/23 18:26 21:25 22:15 Temperature Pulse Rate 73 102 H Respiratory 18 Rate Blood Pressure 130/70 O2 Sat by Pulse 97 97 Oximetry 12/09/23 12/09/23 12/10/23 22:26 23:40 04:06 Temperature Pulse Rate 98 87 102 H Respiratory 20 20 Rate Blood Pressure 115/75 95/47 O2 Sat by Pulse 92 L 90 L Oximetry 12/10/23 12/10/23 06:35 08:31 Temperature 97.9 F Pulse Rate 74 81 Respiratory 18 20 Rate Blood Pressure 112/68 94/41 O2 Sat by Pulse 91 L 91 L Oximetry Medical Decision Making - Medical Decision Making Was pt. sent in by a medical professional or institution (, PA, HAZARDOUS SUBSTANCES ENGINEER, urgent care, hospital, or half-way...) When possible be specific @ -No Did you speak to anyone other than the patient for history (EMS, parent, family, police, friend...)? What history was obtained from this source @ -Spoke with EMS and the patient's mom Did you review nursing and triage notes (agree or disagree)? Why? @ -I reviewed and agree with nursing and triage notes Were old charts reviewed (outside hosp., previous admission, EMS record, old EKG, old radiological studies, urgent care reports/EKG's, half-way records)? Report findings @ -No old charts were reviewed Differential Diagnosis (chest pain, altered mental status, abdominal pain women, abdominal pain men, vaginal bleeding, weakness, fever, dyspnea, syncope, headache, dizziness, GI bleed, back pain, seizure, CVA, palpatations, mental health, musculoskeletal)? @ -Differential Dyspnea: Coronary syndrome, arrhythmia, tamponade, asthma, COPD, pulmonary embolism, pne umonia, pneumothorax, pulmonary effusion, anaphylaxis, diabetic ketoacidosis, flailed chest, pulmonary contusion, diaphragmatic rupture, anemia, neuromuscular, this is not meant to be an all-inclusive list. EKG interpreted by me (3pts min.). @ -Yes and demonstrates sinus tachycardia with a rate of 103. MI interval 142. QRS 97. QTc of 443. No acute ST segment elevations or depressions X-rays interpreted by me (1pt min.). @ -Yes and demonstrates an early right-sided aspiration CT interpreted by me (1pt min.). @ -None done U/S interpreted by me (1pt. min.). @ -None done What testing was considered but not performed or refused? (CT, X-rays, U/S, labs)? Why? @ -None What meds were considered but not given or refused? Why? @ -None Did you discuss the management of the patient with other professionals (professionals i.e. , PA, HAZARDOUS SUBSTANCES ENGINEER, lab, RT, psych nurse, social welfare administrator, criminal lawyer, teacher, major gifts officer, supportive employment case manager)? Give summary @ -Spoke with Dr. Cervantes for admission. I also called and spoke with Dr. Palomino -states the patient can be admitted to 3 S. rather than the ICU Was smoking cessation discussed for >3mins.? @ -No Was critical care preformed (if so, how long)? @ -Yes, 35 minutes for management of hypoxic respiratory failure secondary to aspiration Were there social determinants of health that impacted care today? How? (Homelessness, low income, unemployed, alcoholism, drug addiction, transportation, low edu. Level, literacy, decrease access to med. care, long term, rehab)? @ -No Was there de-escalation of care discussed even if they declined (Discuss DNR or withdrawal of care, Hospice)? DNR status @ -No What co-morbidities impacted this encounter? (DM, HTN, Smoking, COPD, CAD, Cancer, CVA, ARF, Chemo, Hep., AIDS, mental health diagnosis, sleep apnea, mor bid obesity)? @ -Polysubstance abuse Was patient admitted / discharged? Hospital course, mention meds given and route, prescriptions, significant lab abnormalities, going to OR and other pertinent info. @ -Upon arrival patient seen and evaluated in trauma 2. It was reported the patient received CPR. He does arrive alert and oriented and able to answer questions. He is hypoxic at 85% and does require 2 L of oxygen. Laboratory studies are conducted and chest x-ray is performed which demonstrates early aspiration. Patient has significant sputum production which is consistent with emesis. Due to his hypoxia and clinical visualization of his aspiration I did feel that the patient needs to be monitored for worsening respiratory symptoms. Patient agreed to this. I spoke with Dr. Wilson who will admit the patient. Also spoke with Dr. Palomino who felt the patient could go to step down unit due to low oxygen needs at this time Undiagnosed new problem with uncertain prognosis? @ -No Drug Therapy requiring intensive monitoring for toxicity (Heparin, Nitro, Insulin, Cardizem)? @ -No Were any procedures done? @ -No Diagnosis/symptom? @ -Acute opiate overdose, nausea and vomiting, aspiration pneumonia, hypoxic respiratory failure Acute, or Chronic, or Acute on Chronic? @ -Acute Uncomplicated (without systemic symptoms) or Complicated (systemic symptoms)? @ -Complicated Side effects of treatment? @ -No Exacerbation, Progression, or Severe Exacerbation? @ -No Poses a threat to life or bodily function? How? (Chest pain, USA, MD, pneumonia, PE, COPD, DKA, ARF, appy, cholecystitis, CVA, Diverticulitis, Homicidal, Suicidal, threat to staff... and all critical care pts) @ -Yes as patient is hypoxic from his aspiration - Lab Data Result diagrams: 12/10/23 06:02 12/10/23 06:02 Lab Results 12/09/23 12/09/23 12/09/23 Range/Units 16:57 16:57 16:57 WBC 4.8 (3.8-10.6) k/uL RBC 4.75 (4.30-5.90) m/uL Hgb 15.0 (13.0-17.5) gm/dL Hct 44.3 (39.0-53.0) % MCV 93.2 (80.0-100.0) fL MCH 31.5 (25.0-35.0) pg MCHC 33.8 (31.0-37.0) g/dL RDW 12.8 (11.5-15.5) % Plt Count 150 (150-450) k/uL MPV 8.0 Neutrophils % 66 % Lymphocytes % 26 % Monocytes % 5 % Eosinophils % 1 % Basophils % 0 % Neutrophils # 3.1 (1.3-7.7) k/uL Lymphocytes # 1.2 (1.0-4.8) k/uL Monocytes # 0.2 (0-1.0) k/uL Eosinophils # 0.1 (0-0.7) k/uL Basophils # 0.0 (0-0.2) k/uL Sodium 136 L (137-145) mmol/L Potassium 3.8 (3.5-5.1) mmol/L Chloride 103 (98-107) mmol/L Carbon Dioxide 25 (22-30) mmol/L Anion Gap 8 mmol/L BUN 13 (9-20) mg/dL Creatinine 1.21 (0.66-1.25) mg/dL Est GFR (CKD-EPI)AfAm >90 (>60 ml/min/1.73 sqM) Est GFR (CKD-EPI)NonAf 85 (>60 ml/min/1.73 sqM) Glucose 273 H (74-99) mg/dL Plasma Lactic Acid Mike 1.2 (0.7-2.0) mmol/L Calcium 8.5 (8.4-10.2) mg/dL Total Bilirubin 0.7 (0.2-1.3) mg/dL AST 22 (17-59) U/L ALT 18 (4-49) U/L Alkaline Phosphatase 56 (38-126) U/L Creatine Kinase 127 (55-170) U/L Troponin I (0.000-0.034) ng/mL Total Protein 6.4 (6.3-8.2) g/dL Albumin 4.2 (3.5-5.0) g/dL 12/09/23 Range/Units 16:57 WBC (3.8-10.6) k/uL RBC (4.30-5.90) m/uL Hgb (13.0-17.5) gm/dL Hct (39.0-53.0) % MCV (80.0-100.0) fL MCH (25.0-35.0) pg MCHC (31.0-37.0) g/dL RDW (11.5-15.5) % Plt Count (150-450) k/uL MPV Neutrophils % % Lymphocytes % % Monocytes % % Eosinophils % % Basophils % % Neutrophils # (1.3-7.7) k/uL Lymphocytes # (1.0-4.8) k/uL Monocytes # (0-1.0) k/uL Eosinophils # (0-0.7) k/uL Basophils # (0-0.2) k/uL Sodium (137-145) mmol/L Potassium (3.5-5.1) mmol/L Chloride (98-107) mmol/L Carbon Dioxide (22-30) mmol/L Anion Gap mmol/L BUN (9-20) mg/dL Creatinine (0.66-1.25) mg/dL Est GFR (CKD-EPI)AfAm (>60 ml/min/1.73 sqM) Est GFR (CKD-EPI)NonAf (>60 ml/min/1.73 sqM) Glucose (74-99) mg/dL Plasma Lactic Acid Mike (0.7-2.0) mmol/L Calcium (8.4-10.2) mg/dL Total Bilirubin (0.2-1.3) mg/dL AST (17-59) U/L ALT (4-49) U/L Alkaline Phosphatase (38-126) U/L Creatine Kinase (55-170) U/L Troponin I <0.012 (0.000-0.034) ng/mL Total Protein (6.3-8.2) g/dL Albumin (3.5-5.0) g/dL Disposition Clinical Impression: Aspiration into airway, Opiate overdose, Hypoxia Disposition: ADMITTED IP TO THIS [facility] Condition: Stable Is patient prescribed a controlled substance at d/c from ED?: No Time of Disposition: 18:29 Decision to Admit Reason: Admit from EC Decision Date: 12/09/23 Decision Time: 18:29
[2023-12-09 19:18] LABS: Amphetamine Screen,Urine Detected (NotDetected); Benzodiazepines Screen,Urine Not Detected (NotDetected); Cocaine Screen,Urine Not Detected (NotDetected); Opiate Screen,Urine Detected (NotDetected); Phencyclidine Screen,Urine Not Detected (NotDetected); Urn Cannabinoid Scrn Detected (NotDetected)
[2023-12-09 19:19] LABS: Barbiturate Screen,Urine Not Detected (NotDetected); Methadone Screen, Urine Not Detected (NotDetected); Oxycodone Screen, Urine Not Detected (NotDetected); Tricyclic Antidepressant,Urine Not Detected (NotDetected)
[2023-12-09] MEDS: IPRATROPIUM-ALBUTEROL 3 ML NEB INHALATION SCH (22:15)
--- NOTE | 2023-12-09 23:27 | P.HPIM ---
History of Present Illness H&P Date: 12/09/23 Chief Complaint: drug overdose Patient is a 23-year-old male with history of polysubstance abuse presents to the ED after an overdose. History limited due to patient being in and out of sleep. He states that he was snorting heroin and smoking meth yesterday around 1 PM. Does not remember losing consciousness. Patient was home and alone and was found by family around 4pm. CPR was started by family and was given intranasal Narcan. Mother called the ambulance to bring him to emergency department. Denies any current chest pain, but said he had some earlier when arriving to the ED. Admits to productive cough and multiple episodes of vomiting. Was seen coughing up sputum at bedside. patient became agitated when discussed with him his medical history , he claims that all the medical diagnosis of schizophrenia and seizures are not accurate, and that he has stopped taking all his meds. he denies suicidal ideation, and claims doing drugs to get a high, he also claims that he is fine and should not be here in the hospital. Review of systems: Pertinent positives and negatives as discussed in HPI, a complete review of systems was performed and all other systems are negative. Social history: Tobacco: Current everyday smoker, Marijuana Alcohol: Occasional Recreational drugs: Methamphetamine, marijuana Travel: Unable to obtain Occupation: Unable to obtain Physical examination: Vitals: T 98F, CA 73, RR 18, BP 130/70, O2 sat 97% nasal cannula 5 L General: non toxic, no distress, appears at stated age, normal weight, mildly obtunded Derm: no unusual rashes/lesions, warm Head: atraumatic, normocephalic, symmetric Eyes: EOMI, anicteric sclera, pupils equal round reactive to light ENT: Nose and ears atraumatic Mouth: no lip lesion, mucus membranes moist Cardiovascular: S1S2 reg, no murmur, positive dorsalis pedis pulse bilateral, no edema Lungs: CTA bilateral, no rhonchi, no rales, no accessory muscle use Abdominal: soft, nontender to palpation, no guarding Ext: muscle strength 5 out of 5 in all 4 extremities grossly, no gross muscle atrophy, Psych: Alert, oriented to person place and time Assessment/Plan: Patient is a 23-year-old male with known history of polysubstance abuse and schizophrenia presents to the ED after an overdose. ED documentation reviewed and case discussed with ED provider. The patient is admitted with an anticipated less than 2 midnight stay for evaluation of opiate overdose. Acute hypoxic respiratory failure secondary to possible aspiration from drug over dose #. Opiate overdose Patient with a history of polysubstance abuse Urine tox showed positive opiates, amphetamines, methamphetamines, THC EKG independently interpreted displayed sinus tachycardia, rate 103 bpm Labs unremarkable for any possible complication, troponin negative, lactic Acid 1.2, creatine kinase 127 Pain management: Tylenol 650 mg PO q6hr PRN Monitor vitals per floor protocol Monitor respiratory rate consider ICU transfer if respiratory rate <12 Currently on 5 L nasal cannula satting at 97% Monitor on telemetry Continue to observe for any signs of decompensation #. Suspected aspiration CBC unremarkable, unremarkable WBC 4.8, hemoglobin 15 Chest x-ray independently interpreted displayed possible signs of aspiration on left lung base Patient with productive cough Was given Zosyn IVPB q8hr by ED Placed on DuoNeb nebulizer 3 mL inhalation every 4 hours Continue to monitor CBC Monitor for fevers Supplemental oxygen as needed #. Hyperglycemia Glucose 273 Most likely reactive, continue to monitor Insulin sliding scale #. Schizophrenia Hold meds until reconciled Patient claims he is not taking any of his meds Psych consult Denies any suicidal ideation History of seizures Patient denies any history of seizures Patient claims he is not taking any of his meds Seizure precautions DVT prophylaxis: Lovenox 40 SQ F: NS @130 cc/hr E: Replete electrolytes as needed N: Regular diet A: Patient ambulatory CODE STATUS: Full Past Medical History Past Medical History: No Reported History History of Any Multi-Drug Resistant Organisms: None Reported Past Surgical History: No Surgical Hx Reported Past Psychological History: Unable to Obtain Smoking Status: Current every day smoker Past Alcohol Use History: Occasional Past Drug Use History: Methamphetamine - Past Family History Mother Family Medical History: COPD Father Family Medical History: Diabetes Mellitus Medications and Allergies Home Medications Medication Instructions Recorded Confirmed Type ARIPiprazole IM SYRINGE [Abilify 400 mg IM QMONTHLY #1 each 10/19/23 10/20/23 Rx Maintena Syringe] Nicotine Gum (Polacrilex) 2 mg BUCCAL Q4HR PRN pieceofgum 10/19/23 10/20/23 Rx [Nicorette] ARIPiprazole [Abilify] 15 mg PO DAILY tab 10/29/23 Rx Divalproex ER [Depakote ER] 1,000 mg PO DAILY 30 Days #60 tab 10/29/23 Rx Divalproex ER [Depakote ER] 1,000 mg PO HS 30 Days #60 tab 10/29/23 Rx Melatonin 10 mg PO HS 30 Days #60 tab 10/29/23 Rx Mirtazapine [Remeron] 15 mg PO HS PRN 30 Days #30 tab 10/29/23 Rx OLANZapine [ZyPREXA] 15 mg PO 1600 30 Days #30 tablet 10/29/23 Rx cloNIDine HCL [Catapres] 0.1 mg PO HS 30 Days #30 tab 10/29/23 Rx hydrOXYzine pamoate [Vistaril] 50 mg PO BID PRN 30 Days #120 cap 10/29/23 Rx traZODone HCL 300 mg PO HS 30 Days #30 tab 10/29/23 Rx Allergies Allergy/AdvReac Type Severity Reaction Status Date / Time fluphenazine [From Prolixin] AdvReac Severe Swelling Verified 12/09/23 16:45 haloperidol [From Haldol] AdvReac Severe Unknown Verified 12/09/23 16:45 Physical Exam Vitals: Vital Signs Temp Pulse Resp BP Pulse Ox 12/09/23 18:26 97 12/09/23 18:00 94 20 121/76 96 12/09/23 17:24 94 20 131/75 97 12/09/23 16:38 98 F 98 18 137/81 91 L Intake and Output 12/09/23 12/09/23 12/09/23 06:59 14:59 22:59 Output Total 350 Balance -350 Output: Urine 350 Other: Weight 72.575 kg Results CBC & Chem 7: 12/09/23 16:57 12/09/23 16:57 Labs: Abnormal Lab Results - Last 24 Hours (Table) 12/09/23 12/09/23 Range/Units 16:57 18:50 Sodium 136 L (137-145) mmol/L Glucose 273 H (74-99) mg/dL Urine Opiates Screen Detected H (NotDetected) Ur Amphetamines Screen Detected H (NotDetected) U Methamphetamines Scrn Detected H (NotDetected) U Marijuana (THC) Screen Detected H (NotDetected) Assessment and Plan Assessment: I personally saw and examined the patient independently I discussed the case with the resident agree with documented H&P and assessment and plan as documented and amended in blue font where necessary
[2023-12-10] MEDS ORDERED: DEXTROSE 50% SYRINGE 50 ML IVP PRN ×2 (00:52)
[2023-12-10 06:27] LABS: Basophils % (A) 0 %; Eosinophils % (A) 0 %; HCT 43.6 % (39.0-53.0); HGB 14.5 gm/dL (13.0-17.5); Lymphocytes # (A) 1.1 k/uL (1.0-4.8); Lymphocytes % (A) 8 %; MCH 30.9 pg (25.0-35.0); MCHC 33.3 g/dL (31.0-37.0); MCV 92.8 fL (80.0-100.0); Mean Platelet Volume 7.7; Monocytes # (A) 0.5 k/uL (0-1.0); Monocytes % (A) 4 %; Neutrophils # (A) 11.6 k/uL (1.3-7.7); Neutrophils % (A) 88 %; Platelet Count 155 k/uL (150-450); RDW 12.8 % (11.5-15.5); WBC 13.2 k/uL (3.8-10.6)
[2023-12-10 06:53] LABS: African American GFR (CKD) >90 (>60 ml/min/1.73 sqM); Anion Gap 3 mmol/L; Blood Urea Nitrogen 9 mg/dL (9-20); Calcium 8.5 mg/dL (8.4-10.2); Carbon Dioxide 30 mmol/L (22-30); Chloride 101 mmol/L (98-107); Glucose 105 mg/dL (74-99); Non-African American GFR(CKD) >90 (>60 ml/min/1.73 sqM); Sodium 134 mmol/L (137-145)
[2023-12-10 07:59] LABS: Glucose,Whole Blood 109 mg/dL (70-110)
[2023-12-10] MEDS ORDERED: PIPERACILLIN-TAZOBACTAM 3.375 GM in SODIUM CHLORIDE 0.9% 100 ML IVPB SCH (08:00)
[2023-12-10] MEDS: INSULIN ASPART (NovoLOG) 100 UNIT/ML VIAL SQ SCH (08:14)
[2023-12-10] MEDS: ENOXAPARIN 40 MG/0.4 ML SYRINGE SQ SCH (08:31)
--- NOTE | 2023-12-10 08:41 | XR ---
EXAMINATION TYPE: XR chest 2V DATE OF EXAM: 12/10/2023 COMPARISON: 12/09/2023 HISTORY: 23-year-old male cough and pain TECHNIQUE: AP and lateral views FINDINGS: Markedly worsened airspace disease throughout the right lung. Left lung and pleural space are relativ kristina clear. Heart normal size. Aorta within normal limits. IMPRESSION: Marked interval worsening in airspace disease throughout the right lung. Correlate for pneumonia/pneu monitis.
[2023-12-10] MEDS ORDERED: IPRATROPIUM-ALBUTEROL 3 ML NEB INHALATION PRN (11:40)
[2023-12-10 12:40] LABS: Glucose,Whole Blood 96 mg/dL (70-110)
[2023-12-10] MEDS ORDERED: OLANZapine 10 MG TAB PO PRN (13:24)
[2023-12-10] MEDS ORDERED: chlorproMAZINE 25 MG/ML 2 ML AMP IM PRN (13:26)
--- NOTE | 2023-12-10 13:39 | P.CN ---
Psychiatric Consult - . Consult date: 12/10/23 Consult:: 12/10/23 11:55 IDENTIFYING DATA: Patient is a 23-year-old male , lives with his parents in a house, he has no kids he is unemployed Reason for consultation: Schizoaffective disorder HPI: Patient was seen today by pattern chart writer for psychiatric evaluation. Patient has been admitted to the psychiatric unit several times in the past and been under the care of pattern chart writer in the past as well. Patient is currently on a active mental health treatment for medications and outpatient follow-up with [facility]. He is currently on Abilify Maintenna q. monthly, next dose will be due on 12/10. Patient has a history of traumatic brain injury he also has a history of polysubstance abuse, schizoaffective disorder bipolar type. Patient is also been noncompliant with medications in the past. He was brought in on 12/08 after an overdose, apparently patient snorted heroin and did methamphetamine yesterday afternoon, he was found by his family, CPR was done and also given Narcan, he was brought in by EMS. Nurse taking care of patient states that he is irritable at times and agitated. He was seen laying down in the bed, agreeable to speak to pattern chart writer. He was fairly irritable with pattern chart writer, guarded evasive about his drug use. He claims that he does not want to take the mental health medications any longer. He was reminded about the court order and immediately got angry at pattern chart writer and believes that "you are going to take me away from my family". He appeared to be fairly disheveled, states that he is feeling "mentally drained". When asked more about the overdose he states that "I was just messing around" and denies it being a suicide attempt. He states that he was trying to get high. Claims that the heroin must have been "laced with something" as he did "2 bumps" of the heroin snorting and smoked his regular amount of methamphetamine. He claims that he has been going to [facility] and was seen last week, states that he is getting the Abilify maintainer injection. He has very poor insight poor judgment poor impulse control. Claims that his sleep and appetite are fair. He proceeded to follow pattern chart writer outside of the room and into the hallway and yelling at him demanding that he needs to go home and that he does need not need help. D enies any auditory or visual hallucinations. Denies any suicidal homicidal ideations intent or plan. Claims that he did use methamphetamine and is evasive and did not answer questions about the other recreational drugs. He did also claimed that he used opiates/heroin as noted above, claims that he smokes marijuana regularly and also cigarettes denies any other recreational drug use. PAST PSYCHIATRIC HISTORY: Patient has a history of schizoaffective disorder, traumatic brain injury, stimulant use disorder cannabis use disorder and nicotine dependence. He has had multiple prior hospitalizations, last psychiatric admission was in October 2023 on the mental health unit. Patient is currently on Abilify maintainer injection, last dose was given at [facility] on 11/12, next dose will be due on 12/10 400 mg IM. He was also previously on Depakote clonidine trazodone Abilify and Zyprexa also Remeron and melatonin. he denies any history of suicide attempts. He has been seen at the [facility], according to [place] his last contact at [facility] was on 11/17 PMH: As per ER note CHEMICAL DEPENDENCY HISTORY: As per HPI FAMILY PSYCHIATRIC/SUBSTANCE USE HISTORY: Family history of substance use disorders SOCIAL HISTORY: Patient was born and raised in [place]. He presently resides with his mom and father and shares a home with several other people as well. He ended his educational journey around the eighth or ninth grade. He has not had sustained employment. He is not currently in a relationship and does not have any children. He has previously been incarcerated most recently for about a year and was released around July or August of this year. Review of records that incarceration was secondary to stealing a car. MENTAL STATUS EXAM: General Appearance: Patient appears to be tall, discheveled hair, multiple tattoos, uncooperative, impulsive. Restive at times. Patient appears to have poor hygiene and grooming. Behavior: Patient is not displaying agitated behavior. impuslive, childlike. Aggressive, intrusive. Speech: Patient's speech is fluent and nonpressured. Loud at times and demanding Mood/Affect: Patient reports their mood is "alright", affect is incongruent and irritable. Suicidality/Homicidality: Patient denies having any homicidal ideation intent or plan. Denies any suicidal ideations intent or plan Perceptions: Patient denies any visual hallucinations and denies any auditory hallucinations Though content/process: Some thought disorganization. paranoia. demanding discharge, minimizing his drug use. Memory and concentration: alert and oriented to person and place Judgment and insight: chronically Poor and impulsive. IMPRESSIONS: Overdose on opiates and methamphetamine Schizoaffective disorder, bipolar type History of traumatic brain injury methamphetamine use disorder Opioid abuse Cannabis use disorder nicotine dependence non compliance with medications PLAN: -At this time patient DOES meet criteria for inpatient psychiatric admission once medically cleared. Consider transferring to outside facility at this time due to current infection control situation on . -Patient DOES NOT have decision making capacity at this time and is unable to reason through and communicate/appreciate the risks, benefits and alternatives to treatment. -Would recommend the following medication changes/additions: Restarted back on trazodone, 150 mg nightly for mood/insomnia, BuSpar 10 mg twice daily for anxiety, clonidine 0.1 mg nightly for impulsivity/sleep, Depakote 500 mg twice daily for mood stabilization/aggression, melatonin 10 mg nightly for sleep, Zyprexa scheduled 7.5 mg p.o. at 4 PM for mood stabilization/aggression. Zyprexa p.o. as needed for severe agitation/psychosis, Thorazine IM as needed for severe aggression/agitation. -Ordered Abilify maintenna 400 mg IM to be given tomorrow to help ensure compliance. -Patient is currently on a mental health treatment order, is required to take his medications as prescribed. If patient is refusing PO meds then he is to receive Zyprexa IM -Continue 1:1 sitter for safety -Cannot leave AMA at this time. Patient will need a petition and certification if attempting to leave AMA. -When medically stable, patient is eligible for transfer to a psych bed when available. -Communicated plan to patient's nurse -Will continue to follow along as needed -Please contact with any questions. 12/10/23 13:26 12/10/23 13:37
--- NOTE | 2023-12-10 15:20 | P.PN ---
Subjective Progress Note Date: 12/10/23 Subjective: Patient seen and examined at the bedside. Patient is not complaining of any shortness of breath, cough, nausea, vomiting, fever, chest pain, abdominal pain. All Systems reviewed and pertinent positives and negatives noted in HPI, all other symptoms are negative Objective: Vital signs reviewed. General: non toxic, no distress, appears at stated age, normal weight Derm: no unusual rashes/lesions, warm Head: atraumatic, normocephalic, symmetric Eyes: EOMI, no lid lag, anicteric sclera, pupils equal round reactive to light ENT: Nose and ears atraumatic Neck: No cervical lymphadenopathy, trachea midline, supple Mouth: no lip lesion, mucus membranes moist Cardiovascular: S1S2 reg, no murmur, positive dorsalis pedis pulse bilateral, no edema Lungs: CTA bilateral, no rhonchi, no rales, no accessory muscle use Abdominal: soft, nontender to palpation, no guarding Ext: muscle strength 5 out of 5 in all 4 extremities grossly, no gross muscle atrophy, no contractures, Neuro: CN II-XI grossly intact, no gross focal neuro deficits Psych: Alert, oriented, flat affect Data reviewed today: Labs: WBC 13.2, hemoglobin 14.5 hematocrit 43.6, sodium 134, potassium 4.0, creatinine 0.9, glucose 105 Urine toxicology: Positive for opiate, amphetamine, methamphetamine and marijuana Images: Repeat chest x-ray independently interpreted shows marked interval worsening airspace disease throughout the right lung Assessment and Plan: #Acute hypoxic respiratory failure secondary to aspiration pneumonitis from drug overuse #Leukocytosis, likely reactive secondary to aspiration pneumonitis #Opiate overdose Repeat chest x-ray shows marked interval worsening airspace disease throughout the right lung Urine tox showed positive opiates, amphetamines, methamphetamines, THC WBC count 13.2; continue monitor CBC Continue with IV normal saline at 130 cc/h Discontinued IV Zosyn Continue with supplemental oxygen therapy as needed with O2 saturation goal of more than 92% DuoNebs inhalation RT 4 times daily as needed Continue on cardiac telemetry Continue to monitor vitals Pain management: Tylenol 650 mg PO q6hr PRN Aspiration precautions Mild hyponatremia -Continue to follow #Hyperglycemia Glucose 105 Short acting sliding scale insulin #Schizophrenia -Psychiatry note reviewed, started on BuSpar 10 twice daily, Abilify monthly, clonidine 0.1 nightly, Depakote 500 twice daily, melatonin 10 nightly, Zyprexa as needed and 7.5 daily, trazodone 150 nightly -Patient meets criteria for inpatient psychiatry, cannot leave AMA -Continue sitter at bedside #History of seizure Patient denies any history of seizures Patient claims he is not taking any of his meds Seizure precautions F: 130 cc/h IV normal saline E: Replete as needed N: Regular diet A: Seizure precaution, aspiration precautions, sitter one-to-one DVT ppx: Lovenox 40 mg subcu daily Code Status: Full code Anticipated discharge place: Inpatient psychiatry Anticipated discharge date: Pending clinical course I have seen and evaluated the patient today. Discussed with the resident and agree with the residents finding and plan as documented in the resident's note. Changes highlighted in blue font. Objective - Vital Signs Vital signs: Vital Signs Temp 97.9 F 12/10/23 08:31 Pulse 68 12/10/23 12:41 Resp 20 12/10/23 12:41 BP 100/49 12/10/23 12:41 Pulse Ox 93 L 12/10/23 12:41 FiO2 Intake & Output 12/09/23 12/10/23 12/10/23 18:59 06:59 18:59 Output Total 350 Balance -350 Weight 72.575 kg Output: Urine 350 - Labs CBC & Chem 7: 12/10/23 06:02 12/10/23 06:02 Labs: Abnormal Lab Results - Last 24 Hours (Table) 12/09/23 12/09/23 12/10/23 Range/Units 16:57 18:50 06:02 WBC 13.2 H (3.8-10.6) k/uL Neutrophils # 11.6 H (1.3-7.7) k/uL Sodium 136 L (137-145) mmol/L Glucose 273 H (74-99) mg/dL Urine Opiates Screen Detected H (NotDetected) Ur Amphetamines Screen Detected H (NotDetected) U Methamphetamines Scrn Detected H (NotDetected) U Marijuana (THC) Screen Detected H (NotDetected) 12/10/23 Range/Units 06:02 WBC (3.8-10.6) k/uL Neutrophils # (1.3-7.7) k/uL Sodium 134 L (137-145) mmol/L Glucose 105 H (74-99) mg/dL Urine Opiates Screen (NotDetected) Ur Amphetamines Screen (NotDetected) U Methamphetamines Scrn (NotDetected) U Marijuana (THC) Screen (NotDetected)
[2023-12-10] MEDS: busPIRone HCl 10 MG TAB PO SCH (16:11)
[2023-12-10] MEDS: OLANZapine 10 MG TAB PO ONE (16:12)
[2023-12-10 18:12] LABS: Glucose,Whole Blood 110 mg/dL (70-110)
[2023-12-10] MEDS ORDERED: DIVALPROEX ER 500 MG TAB.ER.24H PO SCH (21:00)
[2023-12-10 21:47] LABS: Glucose,Whole Blood 148 mg/dL (70-110)
[2023-12-10] MEDS: cloNIDine HCL 0.1 MG TAB PO SCH (21:57)
[2023-12-10] MEDS: traZODone HCL 50 MG TAB PO SCH (21:57)
[2023-12-10] MEDS: DIVALPROEX ER 500 MG TAB.ER.24H PO SCH (21:57)
[2023-12-10] MEDS: MELATONIN 5 MG TABLET PO SCH (21:57)
[2023-12-10] MEDS: OLANZapine 10 MG VIAL IM PRN (22:14)
[2023-12-11 06:22] LABS: Basophils % (A) 0 %; Eosinophils # (A) 0.1 k/uL (0-0.7); Eosinophils % (A) 1 %; HCT 41.4 % (39.0-53.0); HGB 13.9 gm/dL (13.0-17.5); Lymphocytes % (A) 13 %; MCHC 33.6 g/dL (31.0-37.0); MCV 92.1 fL (80.0-100.0); Mean Platelet Volume 7.6; Monocytes # (A) 0.4 k/uL (0-1.0); Monocytes % (A) 5 %; Neutrophils # (A) 6.1 k/uL (1.3-7.7); Neutrophils % (A) 79 %; Platelet Count 154 k/uL (150-450); RBC 4.49 m/uL (4.30-5.90); RDW 12.7 % (11.5-15.5); WBC 7.7 k/uL (3.8-10.6)
[2023-12-11 06:37] LABS: African American GFR (CKD) >90 (>60 ml/min/1.73 sqM); Anion Gap 2 mmol/L; Blood Urea Nitrogen 8 mg/dL (9-20); Calcium 8.7 mg/dL (8.4-10.2); Carbon Dioxide 29 mmol/L (22-30); Chloride 105 mmol/L (98-107); Glucose 108 mg/dL (74-99); Non-African American GFR(CKD) >90 (>60 ml/min/1.73 sqM); Potassium 3.9 mmol/L (3.5-5.1); Sodium 136 mmol/L (137-145)
[2023-12-11 08:13] LABS: Glucose,Whole Blood 97 mg/dL (70-110)
[2023-12-11] MEDS ORDERED: ARIPiprazole 15 MG TAB PO SCH (09:00)
--- NOTE | 2023-12-11 13:51 | P.PN ---
Progress Note - Text Progress Note Date: 12/11/23 Interval history: Patient was seen today for psychiatric follow-up. Patient took most of his me dications yesterday except for Depakote last night. Due to being on a active mental health court order, he was given IM Zyprexa instead. Patient was seen today laying in bed, he was awoken by chief writer. He initially was fairly calm with chief writer, denied any auditory or visual hallucinations denied any suicidal homicidal ideations intent or plan. He denied any overnight issues, however did state that he had difficulty sleeping last night. Once chief writer began speaking more about patient's medications patient began to be upset with chief writer and started yelling demanding discharge. Patient was also upset with chief writer when speaking about his substance use and states that "Im a free man I can do what i want, im trying to get pussy". he also states that he does not want to go to rehab and does not want to go to [facility]. MENTAL STATUS EXAM: General Appearance: Patient appears to be tall, discheveled hair, multiple tattoos, uncooperative, impulsive. Restive at times. Patient appears to have poor hygiene and grooming. Behavior: Patient is not displaying agitated behavior. impuslive, childlike. Aggressive, intrusive. improving mildly Speech: Patient's speech is fluent and nonpressured. Loud at times and demanding Mood/Affect: Patient reports their mood is "ok", affect is incongruent and irritable. improving mildly Suicidality/Homicidality: Patient denies having any homicidal ideation intent or plan. Denies any suicidal ideations intent or plan Perceptions: Patient denies any visual hallucinations and denies any auditory hallucinations Though content/process: demanding discharge, minimizing his drug use. rambling at times. Memory and concentration: alert and oriented to person and place Judgment and insight: chronically Poor and impulsive. improving mildly IMPRESSIONS: Overdose on opiates and methamphetamine Schizoaffective disorder, bipolar type History of traumatic brain injury methamphetamine use disorder Opioid abuse Cannabis use disorder nicotine dependence non compliance with medications PLAN: -At this time we will continue to monitor on the medical floors to reevaluate tomorrow to see if patient will meet criteria for inpatient psychiatric care. Patient is chronically impulsive and has chronically poor insight and judgment due to history of brain injury and weighing the risks versus benefits of patient being admitted to the mental health floor versus discharge home with outpatient close follow-up. -Would recommend the following medication changes/additions: Increase trazodone, 200 mg nightly for mood/insomnia, increase BuSpar 20 mg twice daily for anxiety, clonidine 0.1 mg nightly for impulsivity/sleep, increase Depakote 1500 mg twice daily for mood stabilization/aggression, melatonin 10 mg nightly for sleep, Zyprexa scheduled 7.5 mg p.o. at 4 PM for mood stabilization/aggression. Zyprexa p.o. as needed for severe agitation/psychosis, Thorazine IM as needed for severe aggression/agitation. added benadryl 50 mg IM prn for agitation. Ativan 2 mg IM and PO for severe agitation prn. -Ordered Abilify maintenna 400 mg IM to be given on 12/10 to help ensure compliance, will be due for next dose on 01/07 -Patient is currently on a mental health treatment order, is required to take his medications as prescribed. If patient is refusing PO meds then he is to receive Zyprexa IM -Continue 1:1 sitter for safety -Cannot leave AMA at this time. Patient will need a petition and certification if attempting to leave AMA. -Communicated plan to patient's nurse -Will continue to follow along tomorrow to make decision on whether or not patient will meet criteria for inpatient psych vs discharged home with outpatient [facility] follow up and monitoring. patient is refusing rehab at this time. -Please contact with any questions.
[2023-12-11] MEDS ORDERED: LORazepam 2 MG/ML INJ IM PRN (13:52)
[2023-12-11] MEDS ORDERED: LORazepam 1 MG TAB PO PRN (13:52)
[2023-12-11] MEDS ORDERED: diphenhydrAMINE 50 MG/ML 1 ML VIAL IM PRN (13:53)
--- NOTE | 2023-12-11 15:36 | P.PN ---
Subjective Progress Note Date: 12/11/23 Subjective: Patient seen and examined at the bedside. Patient is repulsive with his medications. Patient is not complaining of any shortness of breath, cough, nausea, vomiting, fever, chest pain, abdominal pain. All Systems reviewed and pertinent positives and negatives noted in HPI, all other symptoms are negative Objective: Vital signs reviewed. General: non toxic, no distress, appears at stated age, normal weight Derm: no unusual rashes/lesions, warm Head: atraumatic, normocephalic, symmetric Eyes: EOMI, no lid lag, anicteric sclera, pupils equal round reactive to light ENT: Nose and ears atraumatic Neck: No cervical lymphadenopathy, trachea midline, supple Mouth: no lip lesion, mucus membranes moist Cardiovascular: S1S2 reg, no murmur, positive dorsalis pedis pulse bilateral, no edema Lungs: CTA bilateral, no rhonchi, no rales, no accessory muscle use Abdominal: soft, nontender to palpation, no guarding Ext: muscle strength 5 out of 5 in all 4 extremities grossly, no gross muscle atrophy, no contractures, Neuro: CN II-XI grossly intact, no gross focal neuro deficits Psych: Alert, oriented, flat affect Data reviewed today: Labs: WBC 7.7, hemoglobin 13.9, hematocrit 41.4, MCV 92.1 platelet count 154 Sodium 136, potassium 3.9, chloride 105, bicarb 29, BUN 8, creatinine 0.89, glucose 108 Images: No new imaging Assessment and Plan: #Acute hypoxic respiratory failure, resolved #Aspiration pneumonitis from drug overuse #Leukocytosis, likely reactive #Opiate overdose Repeat chest x-ray shows marked interval worsening airspace disease throughout the right lung Urine tox showed positive opiates, amphetamines, methamphetamines, THC WBC count 13.2; continue monitor CBC Continue with IV normal saline at 130 cc/h Discontinued IV Zosyn DuoNebs inhalation RT 4 times daily as needed Continue on cardiac telemetry Continue to monitor vitals Pain management: Tylenol 650 mg PO q6hr PRN Aspiration precautions Mild hyponatremia, resolving -Continue to follow #Hyperglycemia Glucose 105 Short acting sliding scale insulin, discontinued HbA1c 5.2 #Schizophrenia -Psychiatry note reviewed, possible discharge tomorrow if he has a safe place to return home with his parents -Started on BuSpar 10 twice daily, Abilify monthly, clonidine 0.1 nightly, Depakote 500 twice daily, melatonin 10 nightly, Zyprexa as needed and 7.5 daily, trazodone 150 nightly -cannot leave AMA -Continue sitter at bedside #History of seizure Patient denies any history of seizures Patient claims he is not taking any of his meds Seizure precautions F: P.o. E: Replete as needed N: Regular diet A: Seizure precaution, aspiration precautions, sitter one-to-one DVT ppx: Lovenox 40 mg subcu daily Code Status: Full code Anticipated discharge place: Inpatient psychiatry versus home Anticipated discharge date: Pending clinical course I have seen and evaluated the patient today. Discussed with the resident and agree with the residents finding and plan as documented in the resident's note. Changes highlighted in blue font. Objective - Vital Signs Vital signs: Vital Signs Temp 97.6 F 12/11/23 11:05 Pulse 71 12/11/23 11:05 Resp 18 12/11/23 11:05 BP 108/65 12/11/23 11:05 Pulse Ox 97 12/11/23 11:05 FiO2 Intake & Output 12/10/23 12/11/23 12/11/23 18:59 06:59 18:59 Weight 72.575 kg - Labs CBC & Chem 7: 12/11/23 05:49 12/11/23 05:49 Labs: Abnormal Lab Results - Last 24 Hours (Table) 12/10/23 12/11/23 Range/Units 21:44 05:49 Sodium 136 L (137-145) mmol/L BUN 8 L (9-20) mg/dL Glucose 108 H (74-99) mg/dL POC Glucose (mg/dL) 148 H (70-110) mg/dL
[2023-12-11] MEDS: ARIPiprazole IM 400 MG VIAL (NO COST) PHARMACY STOCK IM SCH (16:42)
[2023-12-11] MEDS: OLANZapine 7.5 MG TAB PO SCH (16:43)
[2023-12-11] MEDS: traZODone HCL 100 MG TAB PO SCH (20:29)
[2023-12-11] MEDS: busPIRone HCl 10 MG TAB PO SCH (20:29)
[2023-12-11] MEDS: ACETAMINOPHEN TAB 325 MG TAB PO PRN (20:30)
[2023-12-11] MEDS: DIVALPROEX ER 500 MG TAB.ER.24H PO SCH (20:30)
[2023-12-11] MEDS ORDERED: busPIRone HCl 5 MG TAB PO SCH (21:00)
[2023-12-12 05:09] VITALS: TEMP 98.5
[2023-12-12 08:40] LABS: African American GFR (CKD) >90 (>60 ml/min/1.73 sqM); Anion Gap 8 mmol/L; Blood Urea Nitrogen 7 mg/dL (9-20); Calcium 8.7 mg/dL (8.4-10.2); Carbon Dioxide 24 mmol/L (22-30); Chloride 108 mmol/L (98-107); Glucose 98 mg/dL (74-99); Non-African American GFR(CKD) >90 (>60 ml/min/1.73 sqM); Potassium 3.7 mmol/L (3.5-5.1); Sodium 140 mmol/L (137-145)
[2023-12-12 09:03] VITALS: BP 108/69; PULSE 75
[2023-12-12 09:08] VITALS: RESP 15
--- NOTE | 2023-12-12 11:32 | P.CN ---
Psychiatric Consult - . Consult date: 12/12/23 Consult:: 12/12/23 11:29 Patient was seen today for psychiatric follow-up. also talked to the nurseand reviewed the chart. Subjective: Patient says he is learned his lesson that he was messing around with drugs and got an overdose and freaked his mother out so he is not going to mess with that stuff anymore. However he says he does get bored at home and needs to find things to do when he feels lonely so he needs to find people to get together with. objective: The patient was alert good eye contact reasonable response times somewhat restless he had on his pajama bottoms but no shirt he was cooperative. He did have a shot IMPRESSIONS: he seems to be doing a lot better does not seem to be a danger to self or others at this time no obvious psychotic features Overdose on opiates and methamphetamine Schizoaffective disorder, bipolar type History of traumatic brain injury methamphetamine use disorder Opioid abuse Cannabis use disorder nicotine dependence non compliance with medications PLAN: the plan is to his mom come and pick him up and have him go home.
--- NOTE | 2023-12-12 13:12 | P.DS ---
Providers Date of admission: 12/09/23 18:32 Expected date of discharge: 12/12/23 Attending physician: Risa Wilson MD Consults: 12/10/23 00:41 Consult Physician Routine Consulting Provider: Babar Sinclair Consult Reason/Comments: schizophrenia Do you want consulting provider notified?: Yes, Notify in am Primary care physician: Stated None Hospital Course: Discharge Diagnosis: 1. Acute hypoxic respiratory failure 2. Aspiration pneumonitis, secondary to overdose 3. Leukocytosis 4. Opioid overdose 5. Mild hyponatremia 6. Hyperglycemia 7. Schizophrenia 8. History of seizure Hospital Course: 23-year-old male with history of polysubstance abuse, schizophrenia, seizure presented to the ER after an episode of drug overdose. He was home alone when he did this. Unsure when he went unresponsive but his family came home around 4 PM and found him. They started CPR. He was administered intranasal Narcan and called EMS. When EMS found the patient he had had several bouts of emesis. He was still altered and required bagging. En route to the hospital the patient became more arousable and admitted to drug use. Patient also admitted to protocol for multiple episode of vomiting. Vitals on arrival were temperature 98, Heart rate 73, respiratory rate 18, blood pressure 130/70, oxygen saturation percent on nasal cannula 5 L. CBC was unremarkable. Urine toxicology showed showed positive opiates, amphetamines, methamphetamines, THC. EKG displayed sinus tachycardia, rate 103 bpm. Chest x-ray showed possible signs of aspirati on on the left lung base. Patient was admitted for acute hypoxic respiratory failure secondary to drug overdose and aspiration pneumonitis secondary to aspiration. Patient was continued to be on oxygen therapy via nasal cannula. IV antibiotics were discontinued because of a normal white platelet count and diagnosis established as aspiration pneumonitis based on repeat chest x-ray done on 12/10/2023. Patient was consulted to psychiatry with a history of schizophrenia. Patient was assessed and recommended to be admitted to the inpatient psychiatry because patient continued to have impair judgment. Patient was put on mental health treatment order and was required to take his medication as prescribed. He continue to have one-to-one sitter for safety. Patient could not leave AMA. Patient was reassessed by psychiatry and was deemed to to be discharged home with outpatient psychiatric follow-up. From a medicine standpoint, patient medical condition improved. Stable. Patient is to be discharged home with with self-care Patient was discharged on clonidine 0.1 mg p.o. at bedtime, buspirone 20 mg p.o. twice daily, divalproex ER 150 0 mg p.o. at bedtime, trazodone 200 mg p.o. at be dtime, olanzapine 7.5 mg p.o. Patient to continue with aripiprazole 4 mg IM q. monthly Patient is otherwise to follow-up with PCP and psychiatry. Patient also provided instruction/handouts on methamphetamine abuse and opiate withdrawal. Vital signs reviewed. Gen: in no apparent distress, resting comfortably in bed Eyes: PERRL, no scleral injection or icterus HENT: normocephalic, atraumatic, good hearing acuity, moist mucous membranes Neck: full range of motion Resp: CTAB, no rales, rhonchi, or wheezes CVS: normal S1 and S2, no murmurs, rubs or gallops, no edema GI: soft, NTTP, ND, no hepatosplenomegaly : no suprapubic tenderness, no CVAT, rodriguez catheter is not present MSK: no clubbing, no cyanosis, no noted contractures of extremities Skin: no noted rashes, petechiae; temperature of skin is appropriate Neuro: moving all extremities without signs of weakness, CN II-XII intact Psych: cooperative, euthymic mood, insight and judgment intact A total of 33 minutes of time were spent preparing this complex discharge summary. Patient was discharged on 12/12/2023 at 939. I have seen and evaluated the patient today. Discussed with the resident and agree with the residents finding and plan as documented in the resident's note. Changes highlighted in blue font. Patient Condition at Discharge: Stable Plan - Discharge Summary New Discharge Prescriptions: New cloNIDine HCL [Catapres] 0.1 mg PO HS #30 tab busPIRone HCl [Buspar] 20 mg PO BID #60 tab Divalproex ER [Depakote ER] 1,500 mg PO HS #30 tab traZODone HCL [Desyrel] 200 mg PO HS #30 tab OLANZapine [ZyPREXA] 7.5 mg PO 1600 #30 tab Continue ARIPiprazole IM SYRINGE [Abilify Maintena Syringe] 400 mg IM QMONTHLY #1 each Discharge Medication List ARIPiprazole IM SYRINGE [Abilify Maintena Syringe] 400 mg IM QMONTHLY #1 each 10/19/23 [Rx] Divalproex ER [Depakote ER] 1,500 mg PO HS #30 tab 12/12/23 [Rx] OLANZapine [ZyPREXA] 7.5 mg PO 1600 #30 tab 12/12/23 [Rx] busPIRone HCl [Buspar] 20 mg PO BID #60 tab 12/12/23 [Rx] cloNIDine HCL [Catapres] 0.1 mg PO HS #30 tab 12/12/23 [Rx] traZODone HCL [Desyrel] 200 mg PO HS #30 tab 12/12/23 [Rx] Follow up Appointment(s)/Referral(s): Ortega Ge MD [REFERRING] - 1 Week (Please call on Thursday to schedule hospital follow up. ) None,Stated [Primary Care Provider] - 1-2 days Patient Instructions/Handouts: Methamphetamine Abuse (DC), Opioid Withdrawal (DC) Activity/Diet/Wound Care/Special Instructions: Please see your psychiatrist Please make appointment with PCP below: [facility] for internal medicine Address: [address] [place] [id number] Discharge Disposition: HOME SELF-CARE
== END 2023-12-12 12:17 | disposition home or self-care (01) | DRG 816 ==
LOC: EC 16:34 → 3SCARD 18:32
PROVIDERS: ADMIT Internal Medicine; ATTEND Internal Medicine
DX: T40.1X1A Poisoning by heroin, accidental (unintentional), initial encounter (principal); J96.01 Acute respiratory failure with hypoxia; J69.0 Pneumonitis due to inhalation of food and vomit; F25.0 Schizoaffective disorder, bipolar type; E87.1 Hypo-osmolality and hyponatremia; T43.651A Poisoning by methamphetamines accidental (unintentional), initial encounter; F15.10 Other stimulant abuse, uncomplicated; F12.10 Cannabis abuse, uncomplicated; F11.10 Opioid abuse, uncomplicated; R73.9 Hyperglycemia, unspecified; F17.210 Nicotine dependence, cigarettes, uncomplicated; Y92.009 Unspecified place in unspecified non-institutional (private) residence as the place of occurrence of the external cause; Z87.820 Personal history of traumatic brain injury; Z91.148 Patient's other noncompliance with medication regimen for other reason; Z82.5 Family history of asthma and other chronic lower respiratory diseases
CPT/HCPCS: 36415; 71046; 80048; 80053; 80306; 82550; 83036; 83605; 84484; 85025; 93005; 94640; 96361; 96365; 96366; 96372; 99291